=== PATIENT | female | born 1950 | race Caucasian/White ===

== ENCOUNTER 2016-08-27 10:38 | Outpatient (CLI) | payer MEDICARE, MEDICAID | END 2016-08-27 10:39 | disposition home or self-care (01) | DX: M81.0 Age-related osteoporosis without current pathological fracture (principal) ==

== ENCOUNTER 2016-09-13 14:30 | Outpatient (CLI) | payer MEDICARE, MEDICAID | END 2016-09-13 14:31 | disposition home or self-care (01) | DX: E87.1 Hypo-osmolality and hyponatremia (principal); D64.9 Anemia, unspecified ==

== ENCOUNTER 2016-11-14 13:36 | Outpatient (CLI) | payer MEDICARE, MEDICAID ==
[2016-11-14 19:16] LABS: ALBUMIN/GLOBULIN RATIO 1.2 (1.0-2.2); BILIRUBIN,TOTAL 0.7 mg/dL (0.2-1.0); CALCIUM 9.4 mg/dL (8.5-10.3); POTASSIUM 3.8 mmol/L (3.5-5.0); TOTAL PROTEIN 7.6 g/dL (6.7-8.2)
[2016-11-14 19:23] LABS: BASOPHILS # (AUTO) 0.1 10^3/uL (0.0-0.1); BASOPHILS % (AUTO) 1.9 %; EOSINOPHILS # (AUTO) 0.3 10^3/uL (0.0-0.7); EOSINOPHILS % (AUTO) 4.8 %; HCT - HEMATOCRIT 36.5 % (37.0-47.0); HGB - HEMOGLOBIN 11.7 g/dL (12.0-16.0); LYMPHOCYTES # (AUTO) 1.3 10^3/uL (1.5-3.5); MEAN CORPUSCULAR HEMOGLOBIN 29.1 pg (27.0-31.0); MEAN PLATELET VOLUME 8.4 fL (7.9-10.8); MONOCYTES # (AUTO) 0.6 10^3/uL (0.0-1.0); MONOCYTES % (AUTO) 9.8 %; NEUTROPHILS # (AUTO) 4.3 10^3/uL (1.5-6.6); NEUTROPHILS % (AUTO) 64.5 %; RED BLOOD COUNT 4.01 10^6/uL (4.20-5.40); RED CELL DISTRIBUTION WIDTH 27.6 % (12.0-15.0); UNCORRECTED WHITE BLOOD COUNT 6.6 x10^3/uL; WHITE BLOOD COUNT 6.6 x10^3/uL (4.8-10.8)
[2016-11-14 21:04] LABS: PLATELET ESTIMATE, MANUAL NORMAL (130-450,000) (NORMAL); PLATELET MORPHOLOGY 1+ LARGE PLATELETS (NORMAL)
[2016-11-14 21:05] LABS: WBC MORPHOLOGY (MULTIPLE) 1+ SMUDGE CELLS (NORMAL)
== END 2016-11-14 13:37 ==
LOC: LAB.N 13:36
PROVIDERS: ATTEND Family Medicine
DX: D50.9 Iron deficiency anemia, unspecified (principal)
CPT/HCPCS: 36415; 80053; 82728; 85025

== ENCOUNTER 2017-02-18 12:38 | Outpatient (CLI) | payer MEDICARE, MEDICAID ==
--- NOTE | 2017-02-18 13:23 | Ultrasound Report ---
ULTRASOUND RIGHT ANTERIOR NECK: 02/18/2017 CLINICAL INDICATION: Palpable abnormality. TECHNIQUE: Real-time scanning was performed with marketing representative static images obtained. FINDINGS: Ultrasound of the right anterior neck was performed, directed to the palpable abnormality identified by the patient. At the site of the palpable abnormality, there is a 2.9 x 1.7 x 1.5 cm hypoechoic, heterogeneous nodule, with internal vascularity. A similar appearance is seen within the right jugular vein adjacent to this lesion. It is uncertain if this represents a vascular lesion which extends into collateral vessels, or a soft tissue mass involving the jugular vein. This appears separate from the thyroid gland. No cervical adenopathy is identified in the region. IMPRESSION: UNUSUAL SOFT TISSUE MASS CORRELATING WITH THE PALPABLE ABNORMALITY , WITH POSSIBLE ADJACENT INVOLVEMENT OF THE RIGHT JUGULAR VEIN. FURTHER EVALUATION WITH NECK CT WITH AND WITHOUT IV CONTRAST IS RECOMMENDED. JOB #: [id number] EXT JOB #: [id number] MTDCharisse
== END 2017-02-18 12:39 | disposition home or self-care (01) ==
LOC: DI 12:38
PROVIDERS: ATTEND Family Medicine
DX: R22.1 Localized swelling, mass and lump, neck (principal)
CPT/HCPCS: 76536

== ENCOUNTER 2017-03-27 13:40 | Outpatient (CLI) | payer MEDICARE, MEDICAID ==
[2017-03-27 19:10] LABS: CALCIUM 9.4 mg/dL (8.5-10.3); POTASSIUM 3.6 mmol/L (3.5-5.0)
== END 2017-03-27 13:41 | disposition home or self-care (01) ==
LOC: LAB.N 13:40
PROVIDERS: ATTEND Family Medicine
DX: R22.1 Localized swelling, mass and lump, neck (principal)
CPT/HCPCS: 36415; 80048

== ENCOUNTER 2017-03-29 11:41 | Outpatient (CLI) | payer MEDICARE, MEDICAID ==
[~2017-03-29 11:41] MED LIST: IOPAMIDOL-300 100 ML VIAL ONE
[2017-03-29] MEDS ORDERED: IOPAMIDOL-300 100 ML VIAL IVP ONE ×2 (13:20)
--- NOTE | 2017-03-30 19:02 | CT Report ---
EXAM: CT SOFT TISSUE NECK EXAM DATE: 03/29/2017 01:04 p.m. HISTORY: Swelling in the neck, indeterminate findings on ultrasound. COMPARISONS: Ultrasound 02/18/2017. TECHNIQUE: Helical CT of the soft tissue neck were obtained from the frontal sinus through the paul before and after the uneventful administration of contrast. IV contrast: Without and with contrast, 100 mL Isovue-300. Reconstructions: Coronal and sagittal. In accordance with CT protocol optimization, one or more of the following dose reduction techniques w ere utilized for this exam: automated exposure control, adjustment of mA and/or KV based on patient s ize, or use of iterative reconstructive technique. FINDINGS: There is a peripherally-enhancing lobulated soft tissue mass lesion deep to the right sternocleidomas toid muscle, measuring 2.1 x 3.1 x 4.3 cm, appearing to invade into the right jugular vein with throm bus within the right jugular vein. Thrombus within the right internal jugular vein extends to the C1- C2 level, without extension into the right jugular bulb. There is no extension caudally into the brac hiocephalic vein. Mass almost certainly represents metastatic cervical adenopathy. The nasopharyngeal mucosa, oropharyngeal mucosa, and hypopharyngeal mucosa appear unremarkable. Garcia cula and pyriform sinus appear unremarkable. Larynx and hypopharynx appear unremarkable. Mobile tongu e, sublingual space, and tongue base appear unremarkable. Submandibular and sublingual glands appear unremarkable. Bilateral parotid glands appear unremarkable. Thyroid gland appears unremarkable. Mediastinum, precarinal region, subcarinal region and bilateral hilum appear unremarkable. Axilla and supraclavicular fossa appear unremarkable. Visualized lungs appear unremarkable. Visualized intracranial content shows atherosclerotic calcifica tions of bilateral cavernous carotid arteries. Atherosclerotic calcification of the vertebral artery. Orbits, infratemporal fossa, parapharyngeal space and retropharyngeal space appear unremarkable. No a bnormal enhancement in the visualized intracranial compartment. Multilevel degenerative changes of the cervical spine with anterolisthesis at C3-C4 and C4-C5. Disk h eight loss most pronounced at C5-C6. Levoconvex scoliosis at the cervicothoracic junction. IMPRESSION: 1. Multilobulated peripherally-enhancing, centrally hypoenhancing mass lesion in the right neck, leve l II kevyn station, most likely metastatic adenopathy measuring 2.1 x 3.1 x 4.3 cm. Mass lesion likel y extending into and invading the right internal jugular vein, without invading the carotid artery. T here is thrombus within the right internal jugular vein which extends from the level of the thyroid g land to the C1-C2 level. There is no extension of thrombus into the jugular bulb. 2. No mucosal mass lesions demonstrated. No other areas of cervical adenopathy. RADIA The above critical findings were discussed with Elisa MCWILLIAMS by Dr. Juan Antonio Lynch at 18:48 hr s on 03/30/17. Referring Provider Line: [phone] SITE ID: [id number]
== END 2017-03-29 11:42 | disposition home or self-care (01) ==
LOC: DI 11:41
PROVIDERS: ATTEND Family Medicine
DX: R22.1 Localized swelling, mass and lump, neck (principal); I82.C11 Acute embolism and thrombosis of right internal jugular vein
CPT/HCPCS: 70492; Q9967

== ENCOUNTER 2018-01-27 08:01 | Outpatient (CLI) | payer MEDICARE, MEDICAID ==
--- NOTE | 2018-01-27 09:16 | Ultrasound Report ---
Procedure Date: 01/27/2018 Accession Number: [id number] / [id number] Procedure: US - Abdomen Limited CPT Code: FULL RESULT: EXAM: ABDOMEN ULTRASOUND LIMITED EXAM DATE: 01/27/2018 09:02 AM. CLINICAL HISTORY: SUBCUTANEOUS NODULE OF ABDOMINAL WALL. COMPARISON: None. TECHNIQUE: Real-time scanning was performed with static images obtained. FINDINGS: The palpated abnormality corresponds to a small noncompressible hernia measuring about 15 x 6 mm with a neck measuring about 5 mm. This appears to be through the mesh of a previous hernia repair. No bowel involvement. IMPRESSION: Small noncompressible hernia with no bowel involvement. RADIA
== END 2018-01-27 08:02 | disposition home or self-care (01) ==
LOC: DI 08:01
PROVIDERS: ATTEND Family Medicine
DX: K43.9 Ventral hernia without obstruction or gangrene (principal)
CPT/HCPCS: 76705

== ENCOUNTER 2018-03-19 14:45 | Outpatient (CLI) | payer MEDICARE, MEDICAID ==
--- NOTE | 2018-03-19 16:14 | XRAY Report ---
Reason: toe pain, right Procedure Date: 03/19/2018 Accession Number: [id number] / [id number] Procedure: XRN - Toe(s) RT CPT Code: FULL RESULT: EXAM: RIGHT TOE RADIOGRAPHY EXAM DATE: 03/19/2018 03:06 PM. CLINICAL HISTORY: Toe pain, right. COMPARISON: None. TECHNIQUE: 3 views. FINDINGS: Bones: Bones are qualitatively osteopenic. No fracture or bone lesion. Joints: Midfoot degenerative changes are difficult to evaluate given osteopenia but appear neuropathic. Soft Tissues: Normal. No soft tissue swelling. IMPRESSION: Osteopenia and questionable neuropathic midfoot changes. RADIA
== END 2018-03-19 14:46 | disposition home or self-care (01) ==
LOC: DI.N 14:45
PROVIDERS: ATTEND Family Medicine
DX: M85.871 Other specified disorders of bone density and structure, right ankle and foot (principal)
CPT/HCPCS: 73660

== ENCOUNTER 2018-05-22 14:27 | Outpatient (CLI) | payer MEDICARE, MEDICAID ==
[2018-05-22 19:07] LABS: BASOPHILS # (AUTO) 0.1 10^3/uL (0.0-0.1); BASOPHILS % (AUTO) 3.2 %; EOSINOPHILS # (AUTO) 0.2 10^3/uL (0.0-0.7); HGB - HEMOGLOBIN 7.7 g/dL (12.0-16.0); LYMPHOCYTES # (AUTO) 0.7 10^3/uL (1.5-3.5); LYMPHOCYTES % (AUTO) 17.8 %; MEAN CORPUSCULAR HGB CONC 30.5 g/dL (32.0-36.0); MEAN CORPUSCULAR VOLUME 88.4 fL (81.0-99.0); MEAN PLATELET VOLUME 8.2 fL (7.9-10.8); MEAN RETIC VALUE 133.9; MONOCYTES # (AUTO) 0.5 10^3/uL (0.0-1.0); MONOCYTES % (AUTO) 12.6 %; NEUTROPHILS # (AUTO) 2.3 10^3/uL (1.5-6.6); NEUTROPHILS % (AUTO) 61.4 %; PLT - PLATELET COUNT 212 10^3/uL (130-450); RED BLOOD COUNT 2.85 10^6/uL (4.20-5.40); WHITE BLOOD COUNT 3.7 x10^3/uL (4.8-10.8)
[2018-05-22 19:27] LABS: ALBUMIN 3.8 g/dL (3.2-5.5); ALBUMIN/GLOBULIN RATIO 1.2 (1.0-2.2); BILIRUBIN,TOTAL 0.5 mg/dL (0.2-1.0); CALCIUM 8.9 mg/dL (8.5-10.3); CREATININE 0.6 mg/dL (0.4-1.0); TOTAL PROTEIN 6.9 g/dL (6.7-8.2)
== END 2018-05-22 23:59 ==
LOC: LAB.N 14:27
PROVIDERS: ATTEND Family Medicine
DX: D50.9 Iron deficiency anemia, unspecified (principal); E87.1 Hypo-osmolality and hyponatremia
CPT/HCPCS: 36415; 80053; 82728; 83540; 84466; 85025; 85044

== ENCOUNTER 2018-08-11 08:00 | Outpatient (CLI) | payer MEDICARE, MEDICAID ==
[2018-08-11 19:25] LABS: FERRITIN 168.6 ng/mL (11.0-306.8)
[2018-08-11 19:28] LABS: FOLATE 21.26 ng/mL (5.90 - >24.8)
[2018-08-11 20:05] LABS: % IRON SATURATION 23 % (20-50); IRON 79 ug/dL (28-170); TOTAL IRON BINDING CAPACITY 342 ug/dL (250-450); TRANSFERRIN 244 mg/dL (192-382)
[2018-08-11 20:08] LABS: BASOPHILS # (AUTO) 0.1 10^3/uL (0.0-0.1); BASOPHILS % (AUTO) 1.2 %; EOSINOPHILS # (AUTO) 0.2 10^3/uL (0.0-0.7); EOSINOPHILS % (AUTO) 5.2 %; HGB - HEMOGLOBIN 12.3 g/dL (12.0-16.0); LYMPHOCYTES # (AUTO) 0.8 10^3/uL (1.5-3.5); LYMPHOCYTES % (AUTO) 17.5 %; MEAN CORPUSCULAR HEMOGLOBIN 34.2 pg (27.0-31.0); MEAN CORPUSCULAR HGB CONC 33.1 g/dL (32.0-36.0); MEAN CORPUSCULAR VOLUME 103.4 fL (81.0-99.0); MEAN PLATELET VOLUME 8.3 fL (7.9-10.8); MONOCYTES # (AUTO) 0.5 10^3/uL (0.0-1.0); MONOCYTES % (AUTO) 11.3 %; NEUTROPHILS # (AUTO) 2.8 10^3/uL (1.5-6.6); NEUTROPHILS % (AUTO) 64.8 %; PLT - PLATELET COUNT 180 10^3/uL (130-450); RED BLOOD COUNT 3.59 10^6/uL (4.20-5.40); RED CELL DISTRIBUTION WIDTH 21.3 % (12.0-15.0); WHITE BLOOD COUNT 4.3 x10^3/uL (4.8-10.8)
[2018-08-11 22:28] LABS: PLATELET MORPHOLOGY NORMAL APPEARANCE (NORMAL)
[2018-08-11 22:29] LABS: PLATELET ESTIMATE, MANUAL NORMAL (130-450,000) (NORMAL)
== END 2018-08-11 23:59 | disposition home or self-care (01) ==
LOC: LAB.N 08:00
PROVIDERS: ATTEND Nurse Practitioner
DX: D50.9 Iron deficiency anemia, unspecified (principal)
CPT/HCPCS: 36415; 82607; 82728; 82746; 83540; 84466; 85025

== ENCOUNTER 2019-08-14 14:27 | Outpatient (CLI) | payer MEDICARE, MEDICAID ==
--- NOTE | 2019-08-15 00:01 | XRAY Report ---
Reason: FRACTURE Procedure Date: 08/14/2019 Accession Number: [id number] / [id number] Procedure: XRN - Humerus RT CPT Code: Final Report FULL RESULT: EXAM: RIGHT HUMERUS RADIOGRAPHY EXAM DATE: 08/14/2019 03:28 PM. CLINICAL HISTORY: Fracture. COMPARISON: None. TECHNIQUE: 2 views. FINDINGS: Bones: Displaced transverse humeral neck fracture. No other bony abnormalities identified. Joints: Normal. No effusions or subluxations in the visualized shoulder or elbow joints. Soft Tissues: Normal. No soft tissue calcification. IMPRESSION: Displaced transverse humeral neck fracture. RADIA
== END 2019-08-14 14:28 | disposition home or self-care (01) ==
LOC: DI.N 14:27
PROVIDERS: ATTEND Nurse Practitioner Gerontology
DX: S42.291A Other displaced fracture of upper end of right humerus, initial encounter for closed fracture (principal)

== ENCOUNTER 2021-07-25 14:28 | Outpatient (CLI) | payer MEDICARE, MEDICAID ==
[2021-07-25 18:01] LABS: BASOPHILS # (AUTO) 0.1 10^3/uL (0.0-0.1); BASOPHILS % (AUTO) 2.2 %; EOSINOPHILS # (AUTO) 0.1 10^3/uL (0.0-0.7); EOSINOPHILS % (AUTO) 1.5 %; HCT - HEMATOCRIT 26.8 % (37.0-47.0); LYMPHOCYTES # (AUTO) 0.8 10^3/uL (1.5-3.5); LYMPHOCYTES % (AUTO) 18.5 %; MEAN CORPUSCULAR HEMOGLOBIN 26.2 pg (27.0-31.0); MEAN CORPUSCULAR HGB CONC 29.9 g/dL (32.0-36.0); MEAN CORPUSCULAR VOLUME 87.9 fL (81.0-99.0); MEAN PLATELET VOLUME 10.1 fL (7.9-10.8); MONOCYTES # (AUTO) 0.5 10^3/uL (0.0-1.0); MONOCYTES % (AUTO) 12.4 %; NEUTROPHILS # (AUTO) 2.7 10^3/uL (1.5-6.6); NEUTROPHILS % (AUTO) 64.9 %; PLT - PLATELET COUNT 251 10^3/uL (130-450); RED BLOOD COUNT 3.05 10^6/uL (4.20-5.40); RED CELL DISTRIBUTION WIDTH 20.2 % (12.0-15.0); WHITE BLOOD COUNT 4.1 x10^3/uL (4.8-10.8)
[2021-07-25 19:08] LABS: ALBUMIN/GLOBULIN RATIO 1.2 (1.0-2.2); BILIRUBIN,TOTAL 0.5 mg/dL (0.2-1.0); CALCIUM 9.5 mg/dL (8.5-10.3); CREATININE 0.6 mg/dL (0.4-1.0); POTASSIUM 3.9 mmol/L (3.5-5.0); TOTAL PROTEIN 7.3 g/dL (6.7-8.2)
== END 2021-07-25 14:29 | disposition home or self-care (01) ==
LOC: LAB.N 14:28
PROVIDERS: ATTEND Nurse Practitioner Family
DX: K74.60 Unspecified cirrhosis of liver (principal); D50.9 Iron deficiency anemia, unspecified
CPT/HCPCS: 36415; 80053; 82728; 83540; 84466; 85025

== ENCOUNTER 2022-01-03 14:48 | Outpatient (CLI) | payer MEDICARE, MEDICAID ==
[2022-01-03 17:46] LABS: BASOPHILS # (AUTO) 0.1 10^3/uL (0.0-0.1); BASOPHILS % (AUTO) 2.5 %; EOSINOPHILS # (AUTO) 0.1 10^3/uL (0.0-0.7); EOSINOPHILS % (AUTO) 2.7 %; HCT - HEMATOCRIT 33.1 % (37.0-47.0); HGB - HEMOGLOBIN 10.9 g/dL (12.0-16.0); LYMPHOCYTES # (AUTO) 0.7 10^3/uL (1.5-3.5); LYMPHOCYTES % (AUTO) 15.3 %; MEAN CORPUSCULAR HGB CONC 32.9 g/dL (32.0-36.0); MEAN CORPUSCULAR VOLUME 109.2 fL (81.0-99.0); MONOCYTES # (AUTO) 0.7 10^3/uL (0.0-1.0); MONOCYTES % (AUTO) 15.3 %; NEUTROPHILS # (AUTO) 2.9 10^3/uL (1.5-6.6); PLT - PLATELET COUNT 236 10^3/uL (130-450); RED BLOOD COUNT 3.03 10^6/uL (4.20-5.40); RED CELL DISTRIBUTION WIDTH 13.8 % (12.0-15.0); WHITE BLOOD COUNT 4.5 x10^3/uL (4.8-10.8)
[2022-01-03 18:21] LABS: ALBUMIN 4.3 g/dL (3.2-5.5); ALBUMIN/GLOBULIN RATIO 1.6 (1.0-2.2); BILIRUBIN,TOTAL 0.8 mg/dL (0.2-1.0); CALCIUM 10.1 mg/dL (8.5-10.3); CREATININE 0.7 mg/dL (0.4-1.0)
[2022-01-03 18:35] LABS: THYROID STIMULATING HORMONE 3.45 uIU/mL (0.34-5.60)
== END 2022-01-03 14:49 | disposition home or self-care (01) ==
LOC: LAB.N 14:48
PROVIDERS: ATTEND Nurse Practitioner Family
DX: I10 Essential (primary) hypertension (principal); D50.9 Iron deficiency anemia, unspecified
CPT/HCPCS: 36415; 80053; 84443; 85025

== ENCOUNTER 2022-03-01 09:08 | Outpatient (CLI) | payer MEDICARE, MEDICAID ==
[~2022-03-01 09:08] MED LIST changes: -IOPAMIDOL-300 100 ML VIAL ONE; +LIDOCAINE 1%-EPI 1:100000 20 ML MDV ONE; +lidocaine 1% 20 ML MDV ONE
[2022-03-01] MEDS ORDERED: lidocaine 1% 20 ML MDV SUBQ ONE (12:46)
[2022-03-01] MEDS ORDERED: LIDOCAINE 1%-EPI 1:100000 20 ML MDV SUBQ ONE (12:53)
--- NOTE | 2022-03-02 09:03 | Mammography Report ---
UNILATERAL RIGHT DIGITAL DIAGNOSTIC MAMMOGRAM 3D/2D: 03/01/2022 CLINICAL: Post right breast ultrasound biopsy clip placement imaging. Comparison is made to exams dated: 03/01/2022 mammogram - [facility] and 01/15/2022 m ammogram - [facility]. The right breast is extremely dense, which lowers the sensitivity of mammography (category d />75% g landular tissue). There is a marker clip in the appropriate position in the right breast at 12 o'clock anterior depth. This marker clip placement is at the biopsy site. IMPRESSION: POST PROCEDURE MAMMOGRAM FOR MARKER PLACEMENT There was a successful marker clip placement in the right breast anterior depth. Based on the Tyrer Cuzick model (a risk assessment model) the patients lifetime risk is 7.9% and her 10 year risk is 5.0%. According to the ACR, ACS, and NCCN guidelines, an annual breast MRI exam fidel g with mammogram is recommended if the patients lifetime risk is 20% or greater. This exam was interpreted at Station ID: [id number]. NOTE: For mammograms, a report in lay terms will be sent to the patient. Approximately 15% of breast malignancies will not be visualized mammographically. In the management of a palpable breast mass, a negative mammogram must not discourage biopsy of a clinically suspicious lesion. Electronically Signed By: Sorin Jean-Baptiste acr/:03/01/2022 15:09:24 ACR BI-RADS Category Post-procedure mammogram for marker placement PARENCHYMAL PATTERN: (VD) - The breast(s) demonstrate(s) extremely dense parenchyma, limiting the sen sitivity of mammography. BI-RADS CATEGORY: () - Unspecified - other recall n/a LATERALITY: (B)
--- NOTE | 2022-03-02 09:03 | Mammography Report ---
UNILATERAL LEFT DIGITAL DIAGNOSTIC MAMMOGRAM 3D/2D: 03/01/2022 CLINICAL: Left breast stereotactic biopsy attempted but due to breast thiness/body habitus unable to do exam. Comparison is made to exam dated: 01/15/2022 mammogram - [facility]. The left breast is extremely dense, which lowers the sensitivity of mammography (category d />75% gl andular tissue). Previously described calcifications are unchanged. IMPRESSION: SUSPICIOUS OF MALIGNANCY Calcifications previously described in the left breast could not be targeted for stereotactic biopsy despite multiple positions attempted. Due to the inability to target the calcifications, recommend ne edle localization and excisional biopsy. Based on the Tyrer Cuzick model (a risk assessment model) the patients lifetime risk is 7.9% and her 10 year risk is 5.0%. According to the ACR, ACS, and NCCN guidelines, an annual breast MRI exam fidel g with mammogram is recommended if the patients lifetime risk is 20% or greater. This exam was interpreted at Station ID: [id number]. NOTE: For mammograms, a report in lay terms will be sent to the patient. Approximately 15% of breast malignancies will not be visualized mammographically. In the management of a palpable breast mass, a negative mammogram must not discourage biopsy of a clinically suspicious lesion. Electronically Signed By: Sorin Jean-Baptiste acr/:03/01/2022 15:18:42 Entry: - 03/02/2022 08:43:37 ACR BI-RADS Category 4a: Suspicious abnormality - low suspicion for malignancy 3344F PARENCHYMAL PATTERN: (VD) - The breast(s) demonstrate(s) extremely dense parenchyma, limiting the sen sitivity of mammography. BI-RADS CATEGORY: (4a) - Low Susp Biopsy [id number] Immediate follow-up LATERALITY: (L)
--- NOTE | 2022-03-06 08:19 | Ultrasound Report ---
ULTRASOUND GUIDED BIOPSY RIGHT BREAST WITH MARKING DEVICE INSERTED AND POST MAMMOGRAPHIC IMAGIN02/09 CLINICAL: Right breast mass. PATIENT CONSENT: Risks (minor bleeding, infection, vasovagal reaction and repeat procedure), benefits and alternatives were explained to the patient and written informed consent was obtained. Correlation is made to exams dated: 01/15/2022 ultrasound and 01/15/2022 mammogram - [facility]. An ultrasound guided biopsy using real-time ultrasound was performed for the 2.4 cm x 0.9 cm x 1.5 cm circumscribed oval solid mass located in the right breast at 12 o'clock anterior depth 3 cm from the nipple. The skin was prepped in the usual manner. Local anesthetic was administered to the access site. A small incision was made in the breast. The abnormality was approached from the lateral aspe ct. A 13 gauge biopsy needle was placed adjacent to the abnormality under ultrasound guidance. Once the needle was documented to be in the correct location, seven specimens were obtained using an auto mated biopsy gun. A Hydromark clip was inserted into the biopsy cavity. Post procedure mammographic imaging was obtained. The specimens were sent to the laboratory for pathological analysis. IMPRESSION: ULTRASOUND GUIDED BIOPSY MALIGNANT Ultrasound guided biopsy of the 2.4 cm x 0.9 cm x 1.5 cm solid mass in the right breast at 12 o'clock anterior depth 3 cm from the nipple was successful. Pathology indicates malignant invasive ductal c arcinoma (ID). Pathology results are concordant with imaging findings. A surgical/oncologic consult ation is recommended. This exam was interpreted at Station ID: [id number]. Sorin Mix M.D. acr,jr/:03/05/2022 15:42:30 BI-RADS CATEGORY: () - Unspecified - other recall n/a LATERALITY: (B)
== END 2022-03-01 09:09 | disposition home or self-care (01) ==
LOC: DI 09:08
PROVIDERS: ATTEND Nurse Practitioner Family
DX: C50.811 Malignant neoplasm of overlapping sites of right female breast (principal); Z17.0 Estrogen receptor positive status [ER+]; R92.1 Mammographic calcification found on diagnostic imaging of breast
CPT/HCPCS: 19083

== ENCOUNTER 2022-04-02 07:58 | Day surgery (SDC) | payer MEDICARE, MEDICAID ==
--- NOTE | 2022-03-28 12:20 | CONSULTATION NOTE ---
Consultation Report: Dora is a 71 year old woman with right breast cancer, here for right breast mastectomy. She has a history of oral cancer s/p neck dissection, radiation and chemo. She is a current everyday smoker, history of gastric ulcer and GERD. Her neck dissection took place after radiation and the anesthetic record indicated no difficulty securing the airway (Grade I view, easy mask ventilation and 6.5 ETT). Airway exam is reassuring, MP 1, TMD 3FB with limited neck range of motion. She is edentulous. Discussed the anesthetic management with the patient including possible need for possible awake intubation if unable to secure airway with her asleep. Patient is agreeable. Will proceed with surgery as planned at [facility].
[~2022-04-02 07:58] MED LIST changes: +ACETAMINOPHEN 500 MG TABLET PO ONE; +CEFAZOLIN 2G/50ML 0.9% NS 2 GM/50 ML BAG IV ONE; +GABAPENTIN 400 MG CAPSULE ONE; -LIDOCAINE 1%-EPI 1:100000 20 ML MDV ONE; -lidocaine 1% 20 ML MDV ONE
[2022-04-02] MEDS ORDERED: LACTATED RINGERS 1,000 ML IV ONE ×3 (08:35→16:12)
[2022-04-02] MEDS ORDERED: ALPRAZolam 0.25 MG TABLET PO ONE (08:45)
[2022-04-02] MEDS ORDERED: BUPIVACAINE 0.25% PF 10 ML VIAL ONE (12:15)
[2022-04-02] MEDS ORDERED: LIDOCAINE MPF 2%-EPI 1:200000 20 ML VIAL ONE (12:15)
[2022-04-02] MEDS ORDERED: fentaNYL 100 MCG/2 ML VIAL ONE (12:41)
[2022-04-02] MEDS ORDERED: PROPOFOL 200 MG/20 ML VIAL IVP ONE (12:41)
[2022-04-02] MEDS ORDERED: MIDAZOLAM 2 MG/2 ML VIAL ONE (12:41)
[2022-04-02] MEDS ORDERED: ROCURONIUM 50 MG/5 ML VIAL ONE (12:45)
--- NOTE | 2022-04-02 13:02 | ANESTHESIA ---
Pre-Anesthesia VS, & Labs - Diagnosis R IDC, L breast calcifications - Procedure simplse mastectomy, sentinel lymph node dissection Vital Signs: Temp Pulse Resp BP Pulse Ox O2 Flow Rate 36.8 C 61 17 153/70 H 100 04/02/22 08:37 04/02/22 08:37 04/02/22 08:37 04/02/22 08:37 04/02/22 08:37 Height: 5 ft Weight (kg): 40 kg Body Mass Index: 17.2 BMI Classification: Underweight - NPO >8 hours - Is Patient ?: No - Lab Results Lab results reviewed: Yes Home Medications and Allergies Home Medications: Ambulatory Orders Metoprolol Succinate [Toprol Xl] 25 mg PO ONCE 03/28/22 Omeprazole [PriLOSEC] 20 mg PO DAILY 09/05/15 Metoprolol Succinate [Toprol Xl] 25 mg PO ONCE 03/28/22 Allergies/Adverse Reactions: Allergies Allergy/AdvReac Type Severity Reaction Status Date / Time NSAIDS (Non-Steroidal Allergy Unknown Unknown Verified 03/30/22 12:33 Anti-Inflamma Penicillins Allergy Rash Verified 03/30/22 12:33 Anes History & Medical History - Anesthetic History Anesthesia Complications: reports: No previous complications Family history of Anesthesia Complications: Denies Family history of Malignant Hyperthermia: Denies - Medical History Cardiovascular: reports: Hypertension Pulmonary: reports: Other Gastrointestinal: reports: GERD, Ulcers, Colon polyps, Hepatitis, Cirrhosis Urinary: reports: Kidney stones, Other Neuro: reports: None Musculoskeletal: reports: Osteoporosis Blood Disorders: reports: Anemia Skin: reports: Other Smoking Status: Current every day smoker - Surgical History General: reports: Gastric surgery, Hiatal hernia repair, Colonoscopy, EGD Gynecologic: reports: Tubal ligation Exam General: Alert, Oriented x3, Cooperative Dental: Dentures full Upper Mouth Openin Fingerbreadth Neck Mobility: Limited Mallampati classification: II Thyromental Distance: 4-6 cm Respiratory: Lungs clear, Decreased breath sounds Cardiovascular: Regular rate Neurological: Normal speech Mental/Cognitive Status: Alert/Oriented X3, Normal for patient Cognitive Status: Within normal limits Plan Anesthesia Type: General Consent for Procedure(s) Verified and Reviewed: Yes Code Status: Attempt Resuscitation ASA classification: 3-Severe systemic disease Is this case an emergency?: No
[2022-04-02] MEDS ORDERED: PHENYLEPHRINE 10 MG/ML VIAL ONE (13:16)
[2022-04-02] MEDS ORDERED: ONDANSETRON 4 MG/2 ML VIAL ONE (13:46)
[2022-04-02] MEDS ORDERED: BUPIVACAINE 0.25% PF 10 ML VIAL SUBQ ONE ×2 (13:47)
[2022-04-02] MEDS ORDERED: LIDOCAINE 1%-EPI 1:100000 30 ML MDV SUBQ ONE ×2 (13:47)
--- NOTE | 2022-04-02 14:15 | Mammography Report ---
PROCEDURE: Breast Specimen Surgical INDICATIONS: LEFT BREAST SPECIMEN TECHNIQUE: Intraoperative film of the breast surgical specimen acquired. COMPARISON: Needle localization from earlier today FINDINGS: Tip of the localizing wire is present. Also visualized within the specimen is the nearby calcifications being targeted. IMPRESSION: Left breast specimen demonstrates the tip of the needle localization wire as well as mul tiple targeted calcifications. Reviewed by: Sorin Jean-Baptiste on 04/02/2022 2:13 PM PDT Approved by: Sorin Jean-Baptiste on 04/02/2022 2:13 PM PDT Station ID: [id number]
[2022-04-02] MEDS ORDERED: SEVOFLURANE 250 ML LIQUID INH ONE (14:50)
[2022-04-02] MEDS ORDERED: NALOXONE 0.4 MG/ML VIAL IVP PRN (15:26)
[2022-04-02] MEDS ORDERED: fentaNYL 100 MCG/2 ML VIAL IVP PRN (15:26)
[2022-04-02] MEDS ORDERED: ONDANSETRON 4 MG/2 ML VIAL IVP PRN ×2 (15:26→16:32)
[2022-04-02] MEDS ORDERED: MORPHINE 2 MG/ML CARPUJECT IVP PRN (15:26)
[2022-04-02] MEDS ORDERED: ATROPINE ABBOJECT 1 MG/10 ML SYRINGE IVP PRN (15:26)
[2022-04-02] MEDS ORDERED: HYDROmorphone 0.5 MG/0.5 ML SYRINGE IVP PRN (15:26)
[2022-04-02] MEDS ORDERED: LACTATED RINGERS 1,000 ML IV SCH (16:00)
--- NOTE | 2022-04-02 16:20 | OPERATIVE REPORT ---
Operative Report - General Procedure Date: 04/02/22 Planned Procedure: Right mastectomy, right axillary sentinel lymph node biopsy, left breast excisional biopsy Pre-Op Diagnosis: Right breast invasive ductal carcinoma, left breast calcifications Procedure Performed: Right mastectomy, right axillary sentinel lymph node biopsy, left breast excisional biopsy Post Op Diagnosis: Right breast invasive ductal carcinoma, left breast calcifications - Procedure Note Primary Surgeon: Dr. Samia Holly Anesthesia Technique: General ET tube, Local Pathology: 1.Left breast excisional biopsy, short superior, long lateral, double deep, wire anterior 2. Right mastectomy, short superior, long lateral, skin superficial 3. Right axilla sentinel lymph node #1, #2, 1412 4. Right axilla sentinel lymph node #3, 120 5. Right axilla sentinel lymph node #4, 223 Estimated Blood Loss (mL): 50 Drain/Tube Type: Jhony Regalado drain (Right mastectomy) Indications: The patient have not a palpable mass on the right side and underwent bilateral mammography. She was found to have significant findings in both breasts. The left breast calcifications were unable to be biopsied. The right breast mass was biopsied and proven to be invasive ductal carcinoma. She was seen and evaluated in the clinic where we discussed the risks, benefits, and alternatives of right mastectomy with sentinel lymph node biopsy given the large tumor to breast ratio and left excisional biopsy. Risks of the procedure include bleeding, infection, damage to surrounding structures, and the need for additional procedures. The patient voiced understanding, her questions were answered, and she wished to proceed with surgery. A consent was signed in clinic. Findings: 1.Left breast excisional biopsy with wire in place, radiology confirms calcifications within specimen 2 right mastectomy 3 right axilla sentinel lymph node x4 Complications: None - Other Other Information/Narrative: The patient was taken to the operating room and placed in the supine position. Preop antibiotics were given. ERAS medications were given. The patient was prepped and draped in the usual sterile fashion. A preop surgical timeout was performed. First, attention was turned to the patient's left breast. An incision was made following the natural Bob's lines which incorporated the wire. Skin flaps w ere raised superiorly and inferiorly to the incision. At this point, serrated scissors were used to perform an excisional biopsy staying approximately 1 cm away from the wire in all dimensions. The biopsy specimen was removed and oriented with suture (short superior, long lateral, double deep) on the back table. The specimen was sent to mammography and calcifications were confirmed to be within the specimen. The specimen was then sent to pathology. The edges of the lumpectomy cavity were inspected and there were no palpable abnormalities. Hemostasis was confirmed. 3-0 Vicryl was used to approximate the deep dermal tissues, and 4-0 Monocryl was used to reapproximate the skin edges of this incision. Then, attention was turned to the patient's right breast. An curvilinear incision was made which the palpable mass and the nipple areolar complex. Skin flaps were raised superiorly to the level of the clavicle and inferiorly to the inframammary crease, medially to the border of the sternum, and laterally to the anterior border of the latissimus. The breast was removed from chest wall sitting superficial to the pectoral fascia. The mastectomy specimen was removed and oriented with suture (short superior, long lateral, skin superficial) on the back table. The specimen was sent to pathology . The edges of the mastectomy cavity were inspected hemostasis was confirmed. Next, attention was turned to the right axilla by way of the mastectomy incision. The neoprobe device was used to identify 4 sentinel nodes. Clips were used proximally and distally to the nodes and the nodes were removed the first node had a maximal reading of 1412 on the back table. The second sentinel lymph node measured 120 on the back table. The fourth sentinel lymph node measured 223 on the back table. On further inspection, there were no additional lymph nodes that had at least 10% uptake, 141, and no abnormal palpable nodes. Hemostasis was confirmed in the axilla. A 7 [place] BIRD drain was placed in right sided mastectomy/sentinel lymph node cavity due to its size. This was sewn into place using a 3-0 nylon suture. The deep dermal tissues of the mastectomy incision were closed with 2-0 Vicryl in an interrupted fashion. The skin was closed with 4-0 Monocryl in a running subcuticular fashion. A sterile dressing of skin glue was placed over both incisions. Sterile dressings were placed. The patient tolerated the procedure well. There were no complications.
--- NOTE | 2022-04-02 16:30 | ANESTHESIA POST OP EVALUATION ---
Anesthesia Post Eval - Post Anesthesia Eval Vitals: Last Vital Signs Temp 37.3 C 04/02/22 16:12 Pulse 58 L 04/02/22 16:26 Resp 12 04/02/22 16:26 BP 146/66 H 04/02/22 16:26 Pulse Ox 100 04/02/22 16:26 O2 Flow Rate CV Function Including HR & BP: Stable Pain Control: Satisfactory Nausea & Vomiting: Negative Mental Status: Baseline Respiratory Status: Airway Patent Hydration Status: Satisfactory Anesthesia Complications: None
[2022-04-02] MEDS ORDERED: ACETAMINOPHEN 325 MG TABLET PO PRN (16:32)
[2022-04-02] MEDS ORDERED: oxyCODONE 5 MG TABLET PO PRN (16:32)
[2022-04-02] MEDS ORDERED: HYDROmorphone 1 MG/ML CARPUJECT ONE (16:35)
[2022-04-02 18:02] VITALS: BP 142/66
== END 2022-04-02 18:45 | disposition home or self-care (01) ==
LOC: SDS 07:58 → MS2 17:13 → SDS 18:45
PROVIDERS: ATTEND Surgery
PROC: 0HBT0ZZ Excision of Right Breast, Open Approach (ICD-10-PCS; principal; 2022-04-02 12:00)
PROC: 07B50ZX Excision of Right Axillary Lymphatic, Open Approach, Diagnostic (ICD-10-PCS; 2022-04-02 12:00)
DX: C50.911 Malignant neoplasm of unspecified site of right female breast (principal); C77.3 Secondary and unspecified malignant neoplasm of axilla and upper limb lymph nodes; Z17.0 Estrogen receptor positive status [ER+]; I10 Essential (primary) hypertension; F17.210 Nicotine dependence, cigarettes, uncomplicated
CPT/HCPCS: 19303; 38525; 76098; A9270; J0690; J1170; J3490; J7120

== ENCOUNTER 2022-04-30 13:18 | Emergency (ER) | payer MEDICARE, MEDICAID ==
[2022-04-30 13:34] VITALS: BP 170/60
--- OUTSIDE RECORDS SUMMARY | 2022-04-30 13:37 | EXTERNAL MEDICAL SUMMARY RPT | Continuity of Care Document ---
:1950 Author Organization [facility] Address [address] [place], [place] [id number] Phone Allergies No information. Encounters No information. Functional Status No information. Immunizations No information. Medications No information. Problems No information. Procedures No information. Results/Labs test date author facility value unit interpret ation Result panel 1 (unknown) (no (unknown) (unknown) (no value) (units (unk nown) date) unknown) (unknown) (no (unknown) (unknown) (MIP's) (units (unkno wn) date) unknown) (unknown) (no (unknown) (unknown) 10 o'clock (units (unk nown) date) unknown) (unknown) (no (unknown) (unknown) 03/15/22 (units (unkno wn) date) unknown) (unknown) (no (unknown) (unknown) [address] [place] [address] (units (unknown) date) unknown) (unknown) (no (unknown) (unknown) : [id number] (units (u nknown) date) unknown) (unknown) (no (unknown) (unknown) Accession Number: (units (unknown) date) [id number] unknown) (unknown) (no (unknown) (unknown) Age/Sex: 71 / F (units (unknown) date) Date of Service: unknown) (unknown) (no (unknown) (unknown) [place], [place] (units ( unknown) date) [id number] unknown) (unknown) (no (unknown) (unknown) Approved by: (units (u nknown) date) Júnior Barron M.D. on unknown) 03/15/2022 at 16:39 (unknown) (no (unknown) (unknown) At the 10 o'clock (units (unknown) date) position of the unknown) right breast about 2 centimeters from the (unknown) (no (unknown) (unknown) At the 7 o'clock (units (unknown) date) position of the unknown) right breast about 5 centimeters from nipple, (unknown) (no (unknown) (unknown) BIRADS 6 (units (unkno wn) date) unknown) (unknown) (no (unknown) (unknown) COMMENT: The (units (u nknown) date) imaging literature unknown) indicates that a negative contrast breast MRI (unknown) (no (unknown) (unknown) COMPARISON: None. (units (unknown) date) unknown) (unknown) (no (unknown) (unknown) Computer-aided (units (unknown) date) detection, unknown) including computer algorithm analysis of MRI image (unknown) (no (unknown) (unknown) DCIS (ductal (units (u nknown) date) unknown) (unknown) (no (unknown) (unknown) : 1950 (units (unknown) date) Acct:[id number] unknown) (unknown) (no (unknown) (unknown) Dictated by: (units (u nknown) date) Júnior Barron M.D. on unknown) 03/15/2022 at 16:24 (unknown) (no (unknown) (unknown) Evaluation is (units ( unknown) date) degraded by motion unknown) artifact, suboptimal [id number] and lack of (unknown) (no (unknown) (unknown) Evaluation is (units ( unknown) date) limited as above. unknown) (unknown) (no (unknown) (unknown) FINDINGS: (units (unkn own) date) unknown) (unknown) (no (unknown) (unknown) False (units (unkno wn) date) unknown) (unknown) (no (unknown) (unknown) IMPRESSION: (units (un known) date) Suspected multi unknown) centric disease in the right breast. If (unknown) (no (unknown) (unknown) INDICATIONS: (units (u nknown) date) Malignant neoplasm unknown) of unspecified site (unknown) (no (unknown) (unknown) Image quality: (units (unknown) date) Degraded by motion unknown) artifact and suboptimal [id number]. In (unknown) (no (unknown) (unknown) Invasive (units (unkno wn) date) unknown) (unknown) (no (unknown) (unknown) [facility] (units (unknown) date) unknown) (unknown) (no (unknown) (unknown) Left breast: (units (u nknown) date) Limited evaluation unknown) due to lack of sagittal images and motion (unknown) (no (unknown) (unknown) Loc: MRI (units (unkno wn) date) unknown) (unknown) (no (unknown) (unknown) Magnetic (units (unkno wn) date) Resonance Report unknown) (unknown) (no (unknown) (unknown) Miscellaneous: (units (unknown) date) Partially unknown) visualized non breast findings without significant (unknown) (no (unknown) (unknown) No suspicious (units ( unknown) date) findings in the unknown) left breast. No correlate seen to calcifications (unknown) (no (unknown) (unknown) No suspicious (units ( unknown) date) internal mammary unknown) or axillary adenopathy is seen. (unknown) (no (unknown) (unknown) Ordering (units (unkno wn) date) Provider: unknown) Gricelda Jacques (unknown) (no (unknown) (unknown) PROCEDURE: MR (units ( unknown) date) BREAST BI WO/W CON unknown) (unknown) (no (unknown) (unknown) Patient: (units (unkno wn) date) Parker,Ally unknown) a MR# (unknown) (no (unknown) (unknown) Procedure: MR (units ( unknown) date) breast BI wo/w con unknown) (unknown) (no (unknown) (unknown) Right breast: (units ( unknown) date) There is an unknown) irregular mass with heterogeneous enhancement and (unknown) (no (unknown) (unknown) Signed (units (unkno wn) date) unknown) (unknown) (no (unknown) (unknown) TECHNIQUE: (units (unk nown) date) unknown) (unknown) (no (unknown) (unknown) The patient did (units (unknown) date) not tolerate unknown) further imaging. No suspicious mass, focus, or (unknown) (no (unknown) (unknown) The patient was (units (unknown) date) placed prone in a unknown) dedicated breast imaging coil. Precontrast (unknown) (no (unknown) (unknown) There is mild (units ( unknown) date) background unknown) parenchymal enhancement. (unknown) (no (unknown) (unknown) addition, (units (unkn own) date) unknown) (unknown) (no (unknown) (unknown) after bolus (units (un known) date) unknown) (unknown) (no (unknown) (unknown) an irregular mass (units (unknown) date) with heterogeneous unknown) enhancement and irregular margins (unknown) (no (unknown) (unknown) and 3D FLASH (units (u nknown) date) without fat unknown) saturation sequences were obtained. Both before and (unknown) (no (unknown) (unknown) axial STIR (units (unk nown) date) unknown) (unknown) (no (unknown) (unknown) breast sagittal (units (unknown) date) images. unknown) (unknown) (no (unknown) (unknown) breast were (units (un known) date) unknown) (unknown) (no (unknown) (unknown) calcifications on (units (unknown) date) unknown) (unknown) (no (unknown) (unknown) carcinoma in (units (u nknown) date) situ) and may not unknown) detect large invasive neoplasms that show only (unknown) (no (unknown) (unknown) carcinomas to a (units (unknown) date) detection unknown) threshold of 3-5 mm; nonetheless, appropriate (unknown) (no (unknown) (unknown) clinical and (units (u nknown) date) unknown) (unknown) (no (unknown) (unknown) clinically (units (unk nown) date) worrisome palpable unknown) masses, then biopsy should still be considered. (unknown) (no (unknown) (unknown) confirmation is (units (unknown) date) unknown) (unknown) (no (unknown) (unknown) data for (units (unkno wn) date) unknown) (unknown) (no (unknown) (unknown) degradation. (units (u nknown) date) unknown) (unknown) (no (unknown) (unknown) ductal (units (unkno wn) date) unknown) (unknown) (no (unknown) (unknown) enhancement is (units (unknown) date) identified unknown) corresponding to previously noted group (unknown) (no (unknown) (unknown) enhancement such (units (unknown) date) as mucinous unknown) carcinoma. If there are suspicious calcifications (unknown) (no (unknown) (unknown) examination (units (un known) date) unknown) (unknown) (no (unknown) (unknown) for 3 time (units (unk nown) date) points, with unknown) subtraction images and maximum intensity projections (unknown) (no (unknown) (unknown) generated. (units (unk nown) date) Delayed sagittal unknown) FLASH images with fat saturation were also (unknown) (no (unknown) (unknown) has a high (units (unk nown) date) sensitivity and a unknown) moderate specificity for detecting and excluding (unknown) (no (unknown) (unknown) hyperplasia, (units (u nknown) date) hormonally unknown) stimulated glandular tissue, fat necrosis, or radial (unknown) (no (unknown) (unknown) injection of (units (u nknown) date) contrast, unknown) sequential 1-minute axial 3D FLASH with fat saturation (unknown) (no (unknown) (unknown) internal biopsy (units (unknown) date) clip, about 3 unknown) centimeters from the nipple. (unknown) (no (unknown) (unknown) invasive (units (unkno wn) date) unknown) (unknown) (no (unknown) (unknown) irregular (units (unkn own) date) unknown) (unknown) (no (unknown) (unknown) is an irregular (units (unknown) date) mass with unknown) heterogeneous enhancement and regular margins (unknown) (no (unknown) (unknown) left (units (unkno wn) date) unknown) (unknown) (no (unknown) (unknown) lesion detection (units (unknown) date) and unknown) characterization, pharmacokinetic analysis, with further (unknown) (no (unknown) (unknown) mammogram. No (units ( unknown) date) suspicious unknown) axillary adenopathy is seen. (unknown) (no (unknown) (unknown) mammographic (units (u nknown) date) follow-up are unknown) recommended. MRI is not sensitive for detecting (unknown) (no (unknown) (unknown) mammography, (units (u nknown) date) which could not be unknown) targeted on prior stereotactic biopsy. (unknown) (no (unknown) (unknown) margins the 12 (units (unknown) date) o'clock position unknown) the right breast measuring 17 x 14 x 9 (unknown) (no (unknown) (unknown) masses. (units (unkno wn) date) unknown) (unknown) (no (unknown) (unknown) mastitis, hormone (units (unknown) date) unknown) (unknown) (no (unknown) (unknown) measuring 13 x 10 (units (unknown) date) unknown) (unknown) (no (unknown) (unknown) measuring 13 x 12 (units (unknown) date) unknown) (unknown) (no (unknown) (unknown) millimeters, with (units (unknown) date) unknown) (unknown) (no (unknown) (unknown) minimal (units (unkno wn) date) unknown) (unknown) (no (unknown) (unknown) needed, (units (unkno wn) date) second-look unknown) ultrasound could be used to target the 7 o'clock and/or to (unknown) (no (unknown) (unknown) neoplasms can be (units (unknown) date) hidden by unknown) co-existent and benign enhancement caused by (unknown) (no (unknown) (unknown) nipple, there (units ( unknown) date) unknown) (unknown) (no (unknown) (unknown) non mass (units (unkno wn) date) unknown) (unknown) (no (unknown) (unknown) not acquired. (units ( unknown) date) unknown) (unknown) (no (unknown) (unknown) obtained. (units (unkn own) date) unknown) (unknown) (no (unknown) (unknown) or (units (unkno wn) date) unknown) (unknown) (no (unknown) (unknown) pathology. (units (unk n) date) unknown) (unknown) (no (unknown) (unknown) physician (units (unkn own) date) unknown) (unknown) (no (unknown) (unknown) positive (units (unkno wn) date) examinations can unknown) occur in a number of circumstances, including breasts (unknown) (no (unknown) (unknown) recently been (units ( unknown) date) subject to unknown) invasive procedures and those that contain atypical (unknown) (no (unknown) (unknown) review for (units (unk nown) date) interpretation, unknown) was performed. (unknown) (no (unknown) (unknown) scars. (units (unkno wn) date) unknown) (unknown) (no (unknown) (unknown) seen on (units (unkno wn) date) unknown) (unknown) (no (unknown) (unknown) sequences (units (unkn own) date) unknown) (unknown) (no (unknown) (unknown) that have (units (unkn own) date) unknown) (unknown) (no (unknown) (unknown) the patient did (units (unknown) date) not tolerate unknown) further imaging and sagittal views of the left (unknown) (no (unknown) (unknown) therapy effects, (units (unknown) date) radiation therapy, unknown) , and recent biopsy or surgery. (unknown) (no (unknown) (unknown) there is (units (unkno wn) date) unknown) (unknown) (no (unknown) (unknown) x 14 millimeters. (units (unknown) date) unknown) (unknown) (no (unknown) (unknown) x 8 millimeters. (units (unknown) date) unknown) Social History No information. Vital Signs No information.
--- NOTE | 2022-04-30 13:42 | XRAY Report ---
PROCEDURE: Foot 3 View LT INDICATIONS: Trauma TECHNIQUE: 3 views of the foot were acquired. COMPARISON: None FINDINGS: Bones: Osteopenia, limiting evaluation. Mild scattered arthrosis. No displaced fracture. No dislocati on. Soft tissues: No suspicious calcifications. IMPRESSION: No acute radiographic abnormality. If there is high concern for further derangement, consider MRI lurdes luation. Reviewed by: Júnior Barron MD on 04/30/2022 1:41 PM PST Approved by: Júnior Barron MD on 04/30/2022 1:41 PM PST Station ID: [id number]
== END 2022-04-30 16:22 | disposition left against medical advice (07) ==
LOC: ED 13:18
DX: Z53.29 Procedure and treatment not carried out because of patient's decision for other reasons (principal)

== ENCOUNTER 2022-05-07 11:37 | Emergency (ER) | payer MEDICARE ==
--- NOTE | 2022-05-07 12:41 | Ultrasound Report ---
PROCEDURE: Duplex Ext Veins Left INDICATIONS: pain/swelling TECHNIQUE: Real-time imaging, as well as color and pulse Doppler interrogation, were performed of the lower extr emity deep veins from the inguinal ligament to the popliteal fossa. COMPARISON: None. FINDINGS: The deep veins are normally compressible, and free of intraluminal thrombus. Color and pu lse Doppler demonstrate normal phasic intraluminal flow. There is normal augmentation response to di stal compression maneuver. Left popliteal fossa cyst with debris measuring 4.3 x 1.6 x 1.6 cm. IMPRESSION: No left lower extremity DVT. Reviewed by: Jordon Ortega MD on 05/07/2022 12:40 PM PST Approved by: Jordon Ortega MD on 05/07/2022 12:40 PM PST Station ID: [id number]
--- NOTE | 2022-05-07 13:44 | ED Physician Documentation ---
History of Present Illness - Stated complaint Stated Complaint: L FOOT PX - Chief complaint Chief Complaint: Ext Problem - History obtained from History obtained from: Patient, Family - Additonal information Additional information: The patient comes to the emergency department with her for chief complaint of left foot and ankle pain and swelling for approximately the last week. She states she had a mastectomy just before that and is concerned that there is some connection. She did not have any injury whatsoever. She states that she has not had any pain side of the ankle and foot. The patient was already seen in the walk-in clinic and also had x-rays here, and these were negative for any bony issues. She was sent here by MALATHI Barboza at the walk- in for possible DVT. The patient does have breast cancer currently but has no history of DVT or PE. She states that she has not had any shortness of breath or chest pain. The patient states that when the swelling first started, she had sharp pains in her foot and ankle but now, and seems to have gotten better. She also noticed bruising over the dorsum of her ankle and foot but this has also subsided. Review of Systems Ten Systems: 10 systems reviewed and negative Constitutional: reports: Reviewed and negative Eyes: reports: Reviewed and negative Ears: reports: Reviewed and negative Nose: reports: Reviewed and negative Throat: reports: Reviewed and negative Cardiac: reports: Reviewed and negative Respiratory: reports: Reviewed and negative GI: reports: Reviewed and negative : reports: Reviewed and negative Skin: reports: Reviewed and negative Musculoskeletal: reports: Extremity pain, Extremity swelling, Pain with weight bearing Neurologic: reports: Reviewed and negative Psychiatric: reports: Reviewed and negative Endocrine: reports: Reviewed and negative Immunocompromised: reports: Reviewed and negative PD PAST MEDICAL HISTORY - Past Medical History Past Medical History: Yes Cardiovascular: Hypertension Respiratory: Other Neuro: None GI: GERD, Ulcers, Colon polyps, Hepatitis, Cirrhosis : Kidney stones, Other HEENT: None Psych: None Musculoskeletal: Osteoporosis Derm: Other - Past Surgical History General: Gastric surgery, Hiatal hernia repair, Colonoscopy, 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: Tubal ligation - Present Medications Home Medications: Ambulatory Orders Medication Instructions Recorded Confirmed Omeprazole [PriLOSEC] 20 mg PO DAILY 09/05/15 04/02/22 Metoprolol Succinate [Toprol Xl] 25 mg PO ONCE 03/28/22 04/02/22 oxyCODONE [Roxicodone] 5 mg PO Q4H PRN #9 tablet 04/02/22 - Allergies Allergies/Adverse Reactions: Allergies Allergy/AdvReac Type Severity Reaction Status Date / Time NSAIDS (Non-Steroidal Allergy Unknown Unknown Verified 05/07/22 11:56 Anti-Inflamma Penicillins Allergy Rash Verified 05/07/22 11:56 - Social History Does the pt smoke?: Yes Smoking Status: Current every day smoker Does the pt drink ETOH?: Yes Does the pt have substance abuse?: No - Immunizations Immunizations are current?: Yes PD ED PE NORMAL - Vitals Vital signs reviewed: Yes - General General: Alert and oriented X 3, No acute distress, Well developed/nourished - HEENT HEENT: Atraumatic, PERRL, EOMI, Moist mucous membranes - Neck Neck: Supple, no meningeal sign - Cardiac Cardiac: Strong equal pulses - Respiratory Respiratory: No respiratory distress - Derm Derm: Warm and dry, Other (Subsiding contusion, very faint, over left foot dorsum.) - Extremities Extremities: No deformity, Other (Moderate edema of left ankle and proximal foot.) - Neuro Neuro: Alert and oriented X 3, health services director 2-12 intact, Normal speech - Psych Psych: Normal mood, Normal affect Results - Vitals Vitals: Vital Signs - 24 hr 05/07/22 11:52 Temperature 36.5 C Heart Rate 75 Respiratory 16 Rate Blood Pressure 168/73 H O2 Saturation 100 Oxygen O2 Source Room air - Rads (name of study) us LLE Radiology: Final report received, EMP read indepedently, See rad report (Cuellar's cyst) PD MEDICAL DECISION MAKING - ED course Complexity details: reviewed results, re-evaluated patient, considered differential, d/w patient ED course: The patient was worked up with ultrasound of her left lower extremity, which was unremarkable except for a ruptured Cuellar's cyst. I discussed with the patient that she does not have any serious cause of her swelling at this time. We have discussed management of the symptoms at home and the expected self-limited nature of symptoms. We have discussed the usual indications for follow-up and return. Departure - Departure Disposition: 01 Home, Self Care Clinical Impression: Ruptured Bakers cyst Condition: Stable Instructions: ED Cyst Cuellar Comments: Your ultrasound does not show any blood clots or any other concerning abnormalities. It does show that you had a Cuellar's cyst behind your knee, which has popped open, as it is very common. It will take some time for the swelling to work out of your ankle and foot, but will happen. Please continue propping your foot up whenever you can and apply an ice packs when possible. You may also use compression stockings to help apply some pressure to the swollen area and work some of the fluid out. It does not sound as though you have had any injury and your x-rays were also negative, so there is no reason to suspect a bony injury or issue. Please follow-up with your primary care physician as needed.
[2022-05-07 14:00] VITALS: BP 140/70
== END 2022-05-07 13:59 | disposition home or self-care (01) ==
LOC: ED 11:37
DX: M66.0 Rupture of popliteal cyst (principal); F17.200 Nicotine dependence, unspecified, uncomplicated
CPT/HCPCS: 99284

== ENCOUNTER 2023-02-18 21:03 | Outpatient (CLI) | payer MEDICARE | END 2023-02-18 23:59 | disposition EMS.NT | LOC: EMS 21:03 | DX: R55 Syncope and collapse (principal) ==

== ENCOUNTER 2025-02-27 00:02 | Inpatient (IN) ==
[2025-02-27] MEDS: fentaNYL 100 MCG/2 ML VIAL IVP STA ×2 (00:29→06:52)
[2025-02-27 00:43] LABS: HCT - HEMATOCRIT 30.3 % (37.0-47.0); HGB - HEMOGLOBIN 9.1 g/dL (12.0-16.0); MEAN PLATELET VOLUME 10.5 fL (7.9-10.8); NRBC ABSOLUTE COUNT (AUTO) 0.00 x10^3/uL; NUCLEATED RED BLOOD CELLS AUTO 0.0 /100WBC; PLT - PLATELET COUNT 195 10^3/uL (130-450); RED CELL DISTRIBUTION WIDTH 19.6 % (12.0-15.0)
--- NOTE | 2025-02-27 00:48 | XRAY Report ---
PROCEDURE: XR Chest 1V INDICATIONS: glf, new 02 req TECHNIQUE: One view of the chest was acquired. COMPARISON: None. FINDINGS: Surgical changes and devices: None. Lungs and pleura: No pleural effusions or pneumothorax. No consolidation. Mediastinum: Mediastinal contours appear normal. Heart size is normal. Bones and chest wall: No suspicious bony lesions. Overlying soft tissues appear unremarkable. IMPRESSION: No acute cardiopulmonary process. Reviewed by: Ciro Fair MD on 02/27/2025 12:45 AM PDT Approved by: Ciro Fair MD on 02/27/2025 12:45 AM PDT Station ID: [id number]
--- NOTE | 2025-02-27 00:49 | XRAY Report ---
PROCEDURE: XR Hip w/Pelvis 2-3V LT INDICATIONS: glf, hip deformity TECHNIQUE: 3 views of the hip were acquired. COMPARISON: None. FINDINGS: Bones: Acute comminuted fracture involving the intertrochanteric region of left proximal femur is seen with slight superior migration of proximal femoral shaft in relation to femoral head. Superiorly displaced greater trochanteric fragment is seen. Medially displaced lesser trochanteric fragment is also noted. Moderate bilateral hip joint osteoarthritis. No evidence of avascular necrosis of femoral head. No other fracture or dislocation. No suspicious bony lesions. Soft tissues: No suspicious soft tissue calcifications or masses. IMPRESSION: Acute comminuted and displaced intertrochanteric fracture of left proximal femur as above. Reviewed by: Ciro Fair MD on 02/27/2025 12:46 AM PDT Approved by: Ciro Fair MD on 02/27/2025 12:46 AM PDT Station ID: [id number]
[2025-02-27 01:02] LABS: ETOH - ETHANOL 319.7 mg/dL
[2025-02-27 01:04] LABS: ALT ALANINE AMINOTRANSFERASE 18.0 IU/L (10-60); AST ASPARTATE AMINOTRANSFERASE 43.0 IU/L (10-42); BUN - BLOOD UREA NITROGEN 9.0 mg/dL (6-20); CARBON DIOXIDE - CO2 19.0 mmol/L (21-32); CREATININE 0.6 mg/dL (0.6-1.3); GFR - MDRD 98.0 (>89)
--- OUTSIDE RECORDS SUMMARY | 2025-02-27 01:46 | EXTERNAL MEDICAL SUMMARY RPT | Continuity of Care Document ---
Author Organization [facility] Address [address] [place] [id number] Phone Problems date description facility 2024-12-27 18:33 Dizziness and giddiness [facility] 2025-01-08 00:02 Iron deficiency anemia, unspeci fied [facility] 2025-01-08 00:02 Nicotine dependence, cigarettes , uncomplicated [facility] 2025-01-08 00:02 Essential (primary) hypertensio n [facility] 2025-01-08 00:02 Other secondary hypertension [employer] 2025-01-08 00:02 Gastro-esophageal reflux diseas e without esophagitis [facility] 2025-01-08 00:02 Age-related osteopor osis without current pathological fracture [facility] 2025-01-08 00:02 Asymptomatic menopausal state [employer] 2025-01-08 00:02 Other chcf (current) drug therapy [facility] 2025-01-08 10:35 Age-related osteopor osis without current pathological fracture [facility] 2025-01-08 10:35 Asymptomatic menopausal state [employer] 2025-01-18 10:54 Age-related osteopor osis without current pathological fracture [facility] 2025-01-18 10:54 Asymptomatic menopausal state [employer] 2025-01-18 10:58 Age-related osteopor osis without current pathological fracture [facility] 2025-01-18 10:58 Asymptomatic menopausal state [employer] 2025-02-04 11:01 Age-related osteopor osis without current pathological fracture [facility] 2025-02-04 11:01 Asymptomatic menopausal state [employer] 2025-02-04 11:20 Iron deficiency anemia, unspeci fied [facility] 2025-02-04 11:20 Essential (primary) hypertensio n [facility] 2025-02-04 11:20 Other secondary hypertension [employer] 2025-02-04 11:20 Encounter for screen ing for diseases of the blood and blood-forming organs and certain disorders involving the immune mechanism [facility] 2025-02-04 12:13 Iron deficiency anemia, unspeci fied [facility] 2025-02-04 12:13 Essential (primary) hypertensio n [facility] 2025-02-04 12:13 Other secondary hypertension [facility] 2025-02-04 12:13 Encounter for screen ing for diseases of the blood and blood-forming organs and certain disorders involving the immune mechanism [facility] 2025-02-05 00:01 Age-related osteopor osis without current pathological fracture [employer] 2025-02-05 00:01 [facility]ymptomatic [facility] state [facility] 2025-02-05 00:04 Iron deficiency anemia, unspeci fied [facility] 2025-02-05 00:04 Essential (primary) hypertensio n [facility] 2025-02-05 00:04 Other secondary hypertension [employer] 2025-02-05 00:04 Encounter for screen ing for diseases of the blood and blood-forming organs and certain disorders involving the immune mechanism [employer] 2025-02-05 14:25 Iron deficiency anemia, unspeci [facility] [employer] Results/Labs test date facility value unit notes Result panel 1 NUCLEATED RED BLOOD CELLS AUTO 2025-02-04 11:39 [facility] 0.0 /100wbc (missing) NRBC ABSOLUTE COUNT (AUTO) 2025-02-04 11:39 [facility] 0.00 x10 3/ul (missing) BASOPHILS # (AUTO) 2025-02-04 11:39 [facility] 0.1 10 3/ul (missing) EOSINOPHILS # (AUTO) 2025-02-04 11:39 [facility] 0.2 10 3/ul (missing) MONOCYTES # (AUTO) 2025-02-04 11:39 [facility] 0.6 10 3/ul (missing) CREATININE 2025-02-04 11:39 [facility] 0.7 mg/dl As of December 2022 testing method has changed, this may include reference ranges. BILIRUBIN,TOTAL 2025-02-04 11:39 [facility] 0.8 mg/dl As of December 2022 testing method has changed, this may include reference ranges. LYMPHOCYTES # (AUTO) 2025-02-04 11:39 [facility] 0.9 10 3/ul (missing) RBC MORPHOLOGY (MULTIPLE) 2025-02-04 11:39 [facility] 1+ MICROCYTOSIS (missing) (missing) LDL/HDL RATIO 2025-02-04 11:39 [facility] 1.2 (missing) (missing) ALBUMIN/GLOBULIN RATIO 2025-02-04 11:39 [facility] 1.5 (missing) (missing) CALCIUM 2025-02-04 11:39 [employer] 10.0 mg/dl As of December 2022 testing method has changed, this may include reference ranges. CHLORIDE 2025-02-04 11:39 [facility] 103 mmol/l As of December 2022 testing method has changed, this may include reference ranges. HDL CHOLESTEROL 2025-02-04 11:39 [facility] 112 mg/dl Social History date description facility
[2025-02-27] MEDS: HYDROmorphone 0.5 MG/0.5 ML SYRINGE IVP STA (03:04)
--- NOTE | 2025-02-27 03:50 | ED Physician Documentation ---
History of Present Illness Stated complaint Stated Complaint: GLF/ L HIP INJ Chief complaint Chief Complaint: Trauma Ext Additonal information Additional information: Patient is a 74-year-old female who is brought in by EMS after she had a ground- level fall. Patient states that she had been in joint cocktail at home with her this evening, when she fell. She is not entirely sure why she fell. States that she immediately had pain in her left hip. EMS was called. EMS reports significant deformity to the left hip, and they did give her 50 of fentanyl over to the hospital. GCS was 15 with reassuring vital signs throughout her transport. Denies blood thinner use. Patient shares to me that she has a history of multiple versions of cancer but in remission from all of them. Denies history of other heart or lung problems. Denies diabetes. States that she is currently being worked up for osteoporosis. Rates the pain in her left hip right now is 6 out of 10. She denies pain in her neck, back, face, chest, abdomen, right lower extremity, or bilateral upper extremities. Review of Systems Status of ROS: See HPI Meds/Allgy Home Medications Ambulatory Orders Medication Instructions Recorded Confirmed omeprazole 20 mg capsule,delayed 20 mg PO DAILY 01/07/25 release blood pressure test kit-wrist 12/27/24 01/07/25 (Procare Wrist Blood Pressure Monitor kit) metoprolol succinate 25 mg 25 mg PO QDAY high bp #90 t abs 01/07/25 01/07/25 tablet,extended release 24 hr Allergies Allergies Allergy/AdvReac Type Severity Reaction Status Date / Time NSAIDS (Non-Steroidal Allergy Severe Unknown Verified 02/27/25 00:12 Anti-Inflamma Penicillins Allergy Severe Unknown Verified 02/27/25 00:12 [facility] Active Problems All Active Problems (Updated 02/27/25 @ 04:31 by Maria Del Rosario Carbone MD) Prolonged Q-T interval on ECG (Acute) Closed left hip fracture (Acute) Intertrochanteric fracture of left hip (Acute) Hip fracture, left (Acute) Medication management (Chronic) Hepatitis C (Chronic) Cirrhosis (Chronic) Tobacco dependence (Chronic) Osteoporosis (Chronic) Iron deficiency anemia (Chronic) Cigarette smoker (Chronic) Hypertension (Chronic) GERD (gastroesophageal reflux disease) (Chronic) Underweight (Chronic) Body mass index less than 19, adult (Chronic) Irregular heart beats (Chronic) Medical History Medical History (Updated 02/27/25 @ 04:31 by Maria Del Rosario Carbone MD) Chronic kidney disease, stage 3 Adenocarcinoma, breast ER positive Status post chemoradiation Hx of chemoradiation therapy Subcutaneous nodule of abdominal wall Malignant neoplasm of pharynx, unspecified Jugular vein thrombosis Localized swelling, mass and lump, right lower limb Neck mass Duodenal ulcer hemorrhage prior to 2011 History of squamous cell carcinoma of skin Localized swelling of lower leg Unspecified cirrhosis of liver Unspecified fracture of upper end of right humerus, subsequent encounter for fracture with routine healing Esophageal varices grade 2 Abdominal hernia Duodenal ulcer Surgical History Surgical History (Updated 01/07/25 @ 16:15 by POPPY Zaragoza) Abdominal wall hernia H/O abdominal surgery hemorrhagic duodenal ulcer H/O right mastectomy Social History Social History (Updated 01/07/25 @ 15:27 by Og Lobato LPN) Smoking Status: Unknown if ever smoked Number of Years Smoked: 50 How many cigarettes a day do you smoke? (20 cigarettes=1 Pk): 10 Do you dip or chew tobacco?: No Do you vape?: No Patient requests smoking cessation consult: No Initiate information on smoking cessation: No Living arrangement: At home Marital Status: Living Condition: With spouse/s.o. Support Person: Yes Physical Activity: Walking Level: Independent Do you feel safe in your home environment?: Yes History of physical, verbal, emotional, or financial abuse?: No Frequency: Weekly Substance Use: denies use Exam Exam Vital Signs: Vital Signs x48h Temp Pulse Resp BP Pulse Ox O2 Flow Rate 02/27/25 03:09 73 14 123/56 L 95 2 02/27/25 01:02 69 18 151/59 H 98 02/27/25 00:09 36.1 C L 77 16 166/64 H 95 Constitutional Appears thin, cachectic, appears approximately stated age HENMT normocephalic, head/scalp atraumatic, EACs normal, TMs normal bilaterally, nasal mucous membranes normal and oropharynx normal Eyes PERRL, conjunctivae normal, normal visual frank by confrontation and visual acuity normal Neck/C-Spine visual inspection normal, trachea midline, cervical spine nontender, cervical full ROM noted and supple Chest palpation of chest normal Respiratory breath sounds equal bilaterally, normal respiratory effort, clear to auscultation bilaterally, no wheezes and no use of accessory muscles Cardiovascular normal heart rate noted, regular rhythm noted, no murmur and peripheral pulses 2+ throughout Gastrointestinal abdomen soft to palpation, nontender to palpation and nontender to percussion Genitourinary no CVA tenderness Back/Pelvis no thoracic spine tenderness and no lumbar spine tenderness No step-offs, no deformities in thoracic, lumbar, cervical spine Extremities Significant swelling and deformity to left anterior/lateral hip. Left leg appears externally rotated and foreshortened. Right upper and left upper extremity put through full range of motion without deformity or tenderness. Right lower extremity put through full range of motion without deformity or tenderness. Dopplers present in bilateral lower extremities. Neurology Alert and oriented x 3 Cranial nerves II through XII intact. Sensation is intact throughout habitus. Strength is 5 out of 5 in bilateral upper extremities. 5 out of 5 strength in right lower extremity. Psychiatry oriented x3 Results Vitals Vitals: Vital Signs - 24 hr 02/27/25 00:09 02/27/25 00:29 02/27/25 01:02 Temperature 36.1 C L Temperature Source Tympanic Pulse Rate 77 Pulse Strength Weak Respiratory Rate 16 Blood Pressure 166/64 H O2 Saturation 95 O2 Source Room air If not protocol: Oxygen Flow, liters/minute Pain Intensity 4 4 02/27/25 01:02 02/27/25 03:04 02/27/25 03:09 Temperature Temperature Source Pulse Rate 69 73 Pulse Strength Respiratory Rate 18 14 Blood Pressure 151/59 H 123/56 L O2 Saturation 98 95 O2 Source Room air Nasal cannula If not protocol: Oxygen Flow, liters/minute 2 Pain Intensity 2 8 6 Oxygen O2 Source Nasal cannula Labs Labs: Laboratory Tests 02/27/25 00:39 WBC 6.5 RBC 3.15 L Hgb 9.1 L Hct 30.3 L MCV 96.2 MCH 28.9 MCHC 30.0 L RDW 19.6 H Plt Count 195 MPV 10.5 Neut # (Auto) 4.5 Lymph # (Auto) 1.2 L Duc[place] # (Auto) 0.5 Eos # (Auto) 0.1 Baso # (Auto) 0.1 Absolute Nucleated RBC 0.00 Nucleated RBC % 0.0 Sodium 133 L Potassium 3.5 Chloride 97 L Carbon Dioxide 19 L Anion Gap 17.0 H BUN 9 Creatinine 0.6 Estimated GFR (MDRD) 98 Glucose 77 Calcium 9.4 Total Bilirubin 0.7 AST 43 H ALT 18 Alkaline Phosphatase 117 Total Protein 7.3 Albumin 4.4 Globulin 2.9 Albumin/Globulin Ratio 1.5 Ethyl Alcohol 319.7 PD Medical Decision Making ED course ED course: Assessment: 74-year-old female presenting after ground-level fall with obvious deformity left hip. On exam she appears mildly inebriated but is alert and oriented. She is flexing extending her left foot. There is obvious deformity of the left anterior and lateral hip. She is neurovascularly intact distal to her injury, with positive Dopplers. DDx: Includes was not limited to, anterior hip dislocation, femur fracture, femoral neck fracture, intertrochanteric fracture, pelvic fracture, pubic rami fracture, pelvic ring fracture, lumbar fracture, skull fracture, traumatic subarachnoid hemorrhage, subdural hemorrhage, etc. Workup: CBC grossly within normal limits apart from hemoglobin of 9.1, hematocrit of 30.3. CMP with a sodium of 133, anion gap of 17, AST of 43, otherwise no other significant abnormalities. Alcohol level 319.7. X-ray of pelvis and left femur demonstrates an intertrochanteric fracture that is comminuted and displaced. CT findings otherwise demonstrate wall thickening of the ascending colon, as well as thickening of the gastric antrum. She does have inner thoracic and lumbar spine some old appearing chronic vertebral fractures. Treatment: Fentanyl, Dilaudid Discussion: This patient is admitted to the hospital, after a spoke to both hospitalist and Dr. Syed/Orthopedic surgery. Plan for this patient will be for her to be operated on tomorrow afternoon, versus Saturday morning. Patient was agreeable with this plan. She otherwise remained hemodynamically stable in the ER, and her pain was well-controlled. During my shift she was transferred to the floor. Discharge Plan Discharge Patient Disposition: 67 [facility] DC/Xfer Condition: Stable Clinical Impression: Hip fracture, left, Intertrochanteric fracture of left hip Interventions: ED Admission Assessment Last Done: 02/27/25 04:56
--- NOTE | 2025-02-27 04:33 | HISTORY & PHYSICAL EXAMINATION ---
Chief Complaint Chief Complaint Chief Complaint: mechanical fall History of Present Illness History of Present Illness HPI Comment/Other: Patient is 74 y/o F with hx of HTN and GERD , alcohol use and prior hx of Ascites and monthly fluid draining and last paracentesis was in 2009 as per patient, presented to hospital for evaluation of mechanical fall, patient tripped on carpet and fell on left side, since then c/o LLE pain at hip, unable to bear weight and not able to ambulate, during ER work up patient is found to have left hip fracture and hospitalist team is asked to admit patient, as per Dr Shah who also did labs and EKG, which is consistent with mild dehydration and acidosis and Prolojgned QT 501 msec on EKG Ortho service is notified Meds/Allgy Home Medications Ambulatory Orders Medication Instructions Recorded Confirmed omeprazole 20 mg capsule,delayed 20 mg PO DAILY 01/07/25 release blood pressure test kit-wrist 12/27/24 01/07/25 (Procare Wrist Blood Pressure Monitor kit) metoprolol succinate 25 mg 25 mg PO QDAY high bp #90 t abs 01/07/25 01/07/25 tablet,extended release 24 hr Allergies Allergies Allergy/AdvReac Type Severity Reaction Status Date / Time NSAIDS (Non-Steroidal Allergy Severe Unknown Verified 02/27/25 00:12 Anti-Inflamma Penicillins Allergy Severe Unknown Verified 02/27/25 00:12 [facility] Active Problems All Active Problems (Updated 02/27/25 @ 04:31 by Maria Del Rosario Carbone MD) Prolonged Q-T interval on ECG (Acute) Closed left hip fracture (Acute) Intertrochanteric fracture of left hip (Acute) Hip fracture, left (Acute) Medication management (Chronic) Hepatitis C (Chronic) Cirrhosis (Chronic) Tobacco dependence (Chronic) Osteoporosis (Chronic) Iron deficiency anemia (Chronic) Cigarette smoker (Chronic) Hypertension (Chronic) GERD (gastroesophageal reflux disease) (Chronic) Underweight (Chronic) Body mass index less than 19, adult (Chronic) Irregular heart beats (Chronic) Medical History Medical History (Updated 02/27/25 @ 04:31 by Maria Del Rosario Carbone MD) Chronic kidney disease, stage 3 Adenocarcinoma, breast ER positive Status post chemoradiation Hx of chemoradiation therapy Subcutaneous nodule of abdominal wall Malignant neoplasm of pharynx, unspecified Jugular vein thrombosis Localized swelling, mass and lump, right lower limb Neck mass Duodenal ulcer hemorrhage prior to 2011 History of squamous cell carcinoma of skin Localized swelling of lower leg Unspecified cirrhosis of liver Unspecified fracture of upper end of right humerus, subsequent encounter for fracture with routine healing Esophageal varices grade 2 Abdominal hernia Duodenal ulcer Surgical History Surgical History (Updated 01/07/25 @ 16:15 by POPPY Zaragoza) Abdominal wall hernia H/O abdominal surgery hemorrhagic duodenal ulcer H/O right mastectomy Social History Social History (Updated 01/07/25 @ 15:27 by Og Lobato LPN) Number of Years Smoked: 50 How many cigarettes a day do you smoke? (20 cigarettes=1 Pk): 10 Do you dip or chew tobacco?: No Do you vape?: No Patient requests smoking cessation consult: No Initiate information on smoking cessation: No Living arrangement: At home Marital Status: Living Condition: With spouse/s.o. Support Person: Yes Physical Activity: Walking Level: Independent Do you feel safe in your home environment?: Yes History of physical, verbal, emotional, or financial abuse?: No Frequency: Weekly Substance Use: denies use Review of Systems Status of ROS: 10 or more systems reviewed and unremarkable except as noted in history and below Exam Exam Vital Signs: Vital Signs x48h Temp Pulse Resp BP Pulse Ox O2 Flow Rate 02/27/25 03:09 73 14 123/56 L 95 2 02/27/25 01:02 69 18 151/59 H 98 02/27/25 00:09 36.1 C L 77 16 166/64 H 95 RN Leslie, is present in room, exam was limited by nature of visit, televisit, Patient appears comfortable, sitting, in bed, defer ER MD note for more detailed exam Conclusion/Plan Problem List (1) Closed left hip fracture: Plan: - Admit to med surg with Tele as per Dr Shah's view of EKG shows prolonged QT - Ortho service is notified by Dr Shah, - Keep NPO after 8am - Patient denies any hx of CAD, CVA or any medical history of ongoing medical problems - Appreciate ortho consult, (2) Prolonged Q-T interval on ECG: Plan - Rounding team to verify images of EKG ( I am unable to open) - Recheck for QT interval Hyponatremia, mild acidosis - Mild dehydration - Patient admits alcohol use today - Continue IVF Full code Lab Results 02/27/25 00:39 02/27/25 00:39
--- OUTSIDE RECORDS SUMMARY | 2025-02-27 04:41 | EXTERNAL MEDICAL SUMMARY RPT | Continuity of Care Document ---
Author Organization [facility] Address [address] [place] [id number] Phone Problems date description facility 2024-12-27 18:33 Dizziness and giddiness [employer] 2025-01-08 00:02 Iron deficiency anemia, unspeci fied [facility] [facility] 2025-01-08 00:02 Nicotine dependence, cigarettes , uncomplicated [facility] [facility] 2025-01-08 00:02 Essential (primary) hypertensio n [employer] 2025-01-08 00:02 Other secondary hypertension [employer] 2025-01-08 00:02 Gastro-esophageal reflux diseas e without esophagitis [facility] [facility] 2025-01-08 00:02 Age-related osteopor osis without current pathological fracture [employer] 2025-01-08 00:02 Asymptomatic menopausal state [employer] 2025-01-08 00:02 Other chcf (current) drug therapy [facility] 2025-01-08 10:35 Age-related osteopor osis without current pathological fracture [facility] [facility] 2025-01-08 10:35 Asymptomatic menopausal state [employer] 2025-01-18 10:54 Age-related osteopor osis without current pathological fracture [employer] 2025-01-18 10:54 Asymptomatic menopausal state [employer] 2025-01-18 10:58 Age-related osteopor osis without current pathological fracture [employer] 2025-01-18 10:58 Asymptomatic menopausal state [employer] 2025-02-04 11:01 Age-related osteopor osis without current pathological fracture [employer] [facility] 2025-02-04 11:01 Asymptomatic menopausal state [employer] 2025-02-04 11:20 Iron deficiency anemia, unspeci fied [facility] 2025-02-04 11:20 Essential (primary) hypertensio n [facility] [facility] 2025-02-04 11:20 Other secondary hypertension [facility] 2025-02-04 11:20 Encounter for screen ing for diseases of the blood and blood-forming organs and certain disorders involving the immune mechanism [facility] 2025-02-04 12:13 Iron deficiency anemia, unspeci fied [facility] 2025-02-04 12:13 Essential (primary) hypertensio n [facility] 2025-02-04 12:13 [facility] 2025-02-04 12:13 Encounter for screen ing for diseases of the blood and blood-forming organs and certain disorders involving the immune mechanism [facility] 2025-02-05 00:01 Age-related osteopor osis without current pathological fracture [facility] 2025-02-05 00:01 [facility]ymptomatic [facility] state [facility] 2025-02-05 00:04 Iron deficiency anemia, unspeci fied [facility] 2025-02-05 00:04 Essential (primary) hypertensio n [employer] 2025-02-05 00:04 Other secondary hypertension [facility] 2025-02-05 00:04 Encounter for screen ing for diseases of the blood and blood-forming organs and certain disorders involving the immune mechanism [facility] 2025-02-05 14:25 Iron deficiency anemia, unspeci [facility] Results/Labs test date facility value unit notes Result panel 1 NUCLEATED RED BLOOD CELLS AUTO 2025-02-04 11:39 [facility] 0.0 /100wbc (missing) NR[facility] ABSOLUTE COUNT (AUTO) 2025-02-04 11:39 [facility] 0.00 x10 3/ul (missing) BASOPHILS # (AUTO) 2025-02-04 11:39 [facility] 0.1 10 3/ul (missing) EOSINOPHILS # (AUTO) 2025-02-04 11:39 [facility] 0.2 10 3/ul (missing) MONOCYTES # (AUTO) 2025-02-04 11:39 [facility] 0.6 10 3/ul (missing) CREATININE 2025-02-04 11:39 [facility] 0.7 mg/dl As of December 2022 testing method has changed, this may include reference ranges. BILIRUBIN,TOTAL 2025-02-04 11:39 [facility] 0.8 mg/dl As of December 2022 testing method has changed, this may include reference ranges. LYMPHOCYTES # (AUTO) 2025-02-04 11:39 [facility] 0.9 10 3/ul (missing) RBC MORPHOLOGY (MULTIPLE) 2025-02-04 11:39 [facility] 1+ MICROCYTOSIS (missing) (missing) LDL/HDL RATIO 2025-02-04 11:39 [facility] 1.2 (missing) (missing) ALBUMIN/GLOBULIN RATIO 2025-02-04 11:39 [facility] 1.5 (missing) (missing) CALCIUM 2025-02-04 11:39 [facility] 10.0 mg/dl As of December 2022 testing method has changed, this may include reference ranges. CHLORIDE 2025-02-04 11:39 [facility] 103 mmol/l As of December 2022 testing method has changed, this may include reference ranges. HDL CHOLESTEROL 2025-02-04 11:39 [facility] 112 mg/dl Social History date description facility
--- NOTE | 2025-02-27 05:29 | PROVIDER PROGRESS NOTE ---
Catering Coordinator Note Catering Coordinator Note Catering Coordinator Note: I was contacted by ER MD for abnormal CTAP results which was ordered by ER MD, patient denie any abdominal pain, prior history of ascites, colitis on CTAP, and CT spine old spine fracture, patient has no abdominal symtoms, rounding team to follow, no fever, and low suspicion of infection
[2025-02-27] MEDS ORDERED: SODIUM CHLORIDE FLUSH 0.9% 10 ML SYRINGE IVP PRN (06:09)
[2025-02-27] MEDS: SODIUM CHLORIDE 0.9% 1,000 ML IV SCH (07:00)
[2025-02-27] MEDS: MORPHINE 2 MG/ML CARPUJECT IVP PRN (07:04)
--- NOTE | 2025-02-27 07:04 | PROVIDER PROGRESS NOTE ---
Engineering Program Manager Note Engineering Program Manager Note Engineering Program Manager Note: ER MD notified that patient has abnormal CT AP findings, Considering no abdominal symptoms benign exam as per ER MD and no concern for infection deferring to rounding MD if patient needs further antibiotics or not, Rounding team to f/u with repeat EKG , prolonged QT noed on initial EKG
--- NOTE | 2025-02-27 08:01 | PROVIDER PROGRESS NOTE ---
Subjective Prog Note Date Prog Note Date: 02/27/25 Prog Note Time: 08:01 Subjective Subjective: Patient just admitted earlier today. This is a second visit for today to evaluate for abdominal symptoms given abdominal findings on her CT scan done in the ED. Additionally notable that she had elevated alcohol serologies on arrival over 300. Her EKG also had QT prolongation. We will likely repeat that later on today to ensure that it was not artifact from intoxication. Finally initial labs revealed hyponatremia. Repeating labs later on this morning. Finally she had a awneo-[id number] blood glucose was incidentally drawn this morning which was low. This responded to orange juice. She does not have a history of diabetes. Suspect this is normal variance for her she was asymptomatic. Patient feels like her pain is generally well-controlled at this point in time. She is n.p.o. for procedure. She denies any abdominal pain, diarrhea. She has had a history of normal stools. Denies fevers or chills. Denies nausea or vomiting. She is not having any chest pain or palpitations. Current Medications Current Medications Current Medications: Current Medications Generic Name Dose Route Start Last Admin Trade Name Freq PRN Reason Stop Dose Admin Acetaminophen 650 mg 02/27/25 06:09 Acetaminophen 325 Mg Tablet PO Q4HR PRN Pain 1 to 4, or Fever Hydrocodone Bitart/Acetaminophen 1 tab 02/27/25 06:09 Hydrocod/Acetam 5/325 Mg Tablet PO Q4HR PRN Pain 5 to 7 Hydrocodone Bitart/Acetaminophen 1 tab 02/27/25 06:09 Hydrocod/Acetam 10 Mg/325 Mg Tablet PO Q4HR PRN Pain 8 to 10 Heparin Sodium (Porcine) 5,000 unit 02/27/25 09:00 Heparin 5,000 Unit/Ml Vial SUBQ BID GONZALES Sodium Chloride 1,000 mls @ 75 mls/hr 02/27/25 06:09 02/27/25 07:00 Normal Saline 0.9% IV 75 mls/hr .[id number] GONZALES Administration Morphine Sulfate 2 mg 02/27/25 06:09 02/27/25 07:04 Morphine 2 Mg/Ml Carpuject IVP 2 mg Q2HR PRN Administration Pain 8 to 10 Sodium Chloride 10 ml 02/27/25 06:09 Sodium Chloride Flush 0.9% 10 Ml Syringe IVP PRN PRN NEEDED PER PROVIDER ORDERS Sodium Chloride 10 ml 02/27/25 09:00 Sodium Chloride Flush 0.9% 10 Ml Syringe IVP 0100,0900,1700 GONZALES Objective Vital Signs/Intake & Output Reviewed Vital Signs: Yes Vital Signs: Vital Signs x48h Temp Pulse Pulse Resp BP BP Pulse Ox 02/27/25 05:17 36.5 C 81 18 121/92 H 97 02/27/25 04:56 69 16 136/58 H 100 02/27/25 03:09 73 14 123/56 L 95 02/27/25 01:02 69 18 151/59 H 98 02/27/25 00:09 36.1 C L 77 16 166/64 H 95 O2 Flow Rate 02/27/25 05:17 2 02/27/25 04:56 02/27/25 03:09 2 02/27/25 01:02 02/27/25 00:09 Intake & Output: Intake & Output 02/24/25 02/25/25 02/26/25 02/27/25 23:59 23:59 23:59 23:59 Weight (kg) 44.7 kg Objective Comments/Other: GEN: No acute distress HEENT: NC/AT, normal appearance of external ears and nose. Hearing baseline. Cardiac: Regular rate and rhythm, no murmurs. Pulm: Lungs CTA bilaterally, no cough, no wheezes Abdomen: Soft, nontender, nondistended. No rebound or guarding Neuro: Face symmetric, CN II through XII intact grossly. No significant tremor or tongue fasciculations. Absent asterixis. Psych: Mood euthymic with congruent affect. Lab Results 02/27/25 10:15 02/27/25 10:15 Other Labs: Lab Results x24hrs 02/27/25 02/27/25 Range/Units 07:47 00:39 WBC 6.5 (4.8-10.8) x10^3/uL RBC 3.15 L (4.20-5.40) 10^6/uL Hgb 9.1 L (12.0-16.0) g/dL Hct 30.3 L (37.0-47.0) % MCV 96.2 (81.0-99.0) fL MCH 28.9 (27.0-31.0) pg MCHC 30.0 L (32.0-36.0) g/dL RDW 19.6 H (12.0-15.0) % Plt Count 195 (130-450) 10^3/uL MPV 10.5 (7.9-10.8) fL Neut # (Auto) 4.5 (1.5-6.6) 10^3/uL Lymph # (Auto) 1.2 L (1.5-3.5) 10^3/uL [place] # (Auto) 0.5 (0.0-1.0) 10^3/uL Eos # (Auto) 0.1 (0.0-0.7) 10^3/uL Baso # (Auto) 0.1 (0.0-0.1) 10^3/uL Absolute Nucleated RBC 0.00 x10^3/uL Nucleated RBC % 0.0 /100WBC Sodium 133 L (135-145) mmol/L Potassium 3.5 (3.5-4.5) mmol/L Chloride 97 L (101-111) mmol/L Carbon Dioxide 19 L (21-32) mmol/L Anion Gap 17.0 H (6-13) BUN 9 (6-20) mg/dL Creatinine 0.6 (0.6-1.3) mg/dL Estimated GFR (MDRD) 98 (>89) Glucose 77 (74-104) mg/dL POC Whole Bld Glucose 53 (70-100) mg/dL Calcium 9.4 (8.5-10.3) mg/dL Total Bilirubin 0.7 (0.2-1.0) mg/dL AST 43 H (10-42) IU/L ALT 18 (10-60) IU/L Alkaline Phosphatase 117 (42-121) IU/L Total Protein 7.3 (6.4-8.9) g/dL Albumin 4.4 (3.2-5.5) g/dL Globulin 2.9 (2.1-4.2) g/dL Albumin/Globulin Ratio 1.5 (1.0-2.2) Ethyl Alcohol 319.7 mg/dL Assessment/Plan Problem List (1) Intertrochanteric fracture of left hip: Impression: Patient presenting after mechanical ground-level fall with closed intertrochanteric left hip fracture. She is admitted, pending potential surgery. * Patient was not made n.p.o. overnight, is n.p.o. now * Pain well-managed on current therapies * Ortho to follow-up later today for potential intervention * RCRI 0. * Patient's vital signs are stable, she appears optimized for surgery. Qualifiers: Encounter type: initial encounter Fracture type: closed Fracture alignment: displaced Qualified Code(s): S72.142A - Displaced intertrochanteric fracture of left femur, initial encounter for closed fracture (2) Prolonged Q-T interval on ECG: Impression: Mildly prolonged on initial EKG, QTc 501. Notably she had a positive blood alcohol level at that time as well. I do wonder if this may be related to acute intoxication. Patient denies any chest pain, palpitations, tachycardia, or previous heart issues. She is on Toprol 25 daily * We will repeat her EKG this morning. (3) Osteoporosis: Impression: She actually just had a recent DEXA scan in January 2025. T-score of -3.3 at the left femoral neck, -3.4 at the left hip. -0.7 at the Lspine. Not yet started on treatment. * Likely should start on Bisphosphonate at discharge, will discuss with surgery * Serum calcium level WNL * Will start on calcium and vitamin D for secondary prophylaxis Qualifiers: Osteoporosis type: age-related Presence of current pathological fracture: with current pathological fracture Encounter type: initial encounter Qualified Code(s): M80.00XA - Age-related osteoporosis with current pathological fracture, unspecified site, initial encounter for fracture (4) Tobacco dependence: Impression: Patient apparently is a minimal smoker. She smokes approximately 1 cigarette/day. Did not want a nicotine patch this morning. (5) Alcohol use: Impression: Patient came in with a positive blood alcohol level up to 340. She is not exhibiting any symptoms of withdrawal at this time. She is somewhat furtive about her drinking history. She does have a documented history of cirrhosis, however her labs are inconsistent with this diagnosis. * Will monitor clinically for any symptoms of withdrawal, specifically tachycardia, agitation, tremor.
[2025-02-27] MEDS: SODIUM CHLORIDE FLUSH 0.9% 10 ML SYRINGE IVP SCH (09:30)
--- NOTE | 2025-02-27 09:41 | CT Report ---
PROCEDURE: CT Cervical Spine WO INDICATIONS: GLF, neck pain TECHNIQUE: Helical axial CT of the cervical spine was obtained without contrast and reformatted in multiple planes. COMPARISON: None. FINDINGS: Bones: No fractures or dislocations. Visualized superior ribs are intact. Degenerative disc disease and arthropathy noted throughout the spine particularly in the mid to lower cervical spine. Grade 2 anterior degenerative spondylolisthesis present at C3-4. Craniovertebral relationships normal. Soft tissues: Prevertebral soft tissues are normal in thickness. No paravertebral hematomas. No apical pneumothoraces. IMPRESSION: Degenerative disc disease and arthropathy without fracture or traumatic malalignment. Reviewed by: Chetan Krishnamurthy MD on 02/27/2025 8:37 AM [facility] Approved by: Chetan Krishnamurthy MD on 02/27/2025 8:37 AM [facility] Station ID: [id number]
--- NOTE | 2025-02-27 09:43 | CT Report ---
PROCEDURE: CT Head WO INDICATIONS: glf, head trauma TECHNIQUE: Helical axial CT of the brain was obtained without contrast and reformatted in multiple planes. COMPARISON: None FINDINGS: CSF spaces: Ventricles are appropriate in size and position. No hydrocephalus. Basal cisterns unremarkable. Brain: No midline shift. No intracranial masses or hemorrhage. Smith-white matter interface is normal. Moderate atrophy and multifocal white matter chronic ischemic change noted. Atherosclerotic vascular calcification noted in the cavernous segments of both internal carotid arteries. 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 Skull and face: Calvarium and skull base are unremarkable without suspicious lesion. Sinuses: Visualized sinuses and mastoids are clear. IMPRESSION: Atrophy and chronic ischemic change without acute hemorrhage or mass effect. 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 Note: This final report is concordant with the preliminary after-hours interpretation provided by [employer] Reviewed by: Chetan Krishnamurthy MD on 02/27/2025 8:39 AM [facility]NA Approved by: Chetan Krishnamurthy MD on 02/27/2025 8:39 AM [facility] Station ID: [id number]
[2025-02-27] MEDS: HEPARIN 5,000 UNIT/ML VIAL SUBQ SCH (09:46)
--- NOTE | 2025-02-27 09:55 | CT Report ---
PROCEDURE: CT Abdomen/Pelvis W INDICATIONS: Trauma CONTRAST: 100ml omni 300 TECHNIQUE: After the administration of intravenous contrast, a CT scan of the abdomen and pelvis was performed. Images were recorded and evaluated at appropriate window settings. Reformats: coronal and sagittal. COMPARISON: None. FINDINGS: Lower chest: Unremarkable. Liver: Hepatic parenchyma is diffusely decreased in attenuation without focal mass lesion. Lobulation of the hepatic capsule could reflect cirrhosis in the proper clinical setting. Gallbladder: Cholelithiasis Biliary tree: Unremarkable Spleen: No splenomegaly. Pancreas: No pancreatic ductal dilation. Adrenals: No adrenal nodule. Kidneys and ureters: No hydronephrosis. Left renal scarring with nonobstructive renal calculi Stomach, bowel and peritoneum: Marked circumferential wall thickening of the gastric antrum without obstruction. Additionally, bowel wall thickening and pericolonic edema noted involving the ascending colon. No pneumatosis or free air. No obstruction. Lymph nodes: No central or retroperitoneal adenopathy. Vessels: Diffuse atherosclerotic calcified and noncalcified plaque involving the aorta without aneurysm. There is atherosclerotic obstruction of the right common iliac artery with reconstitution of the common femoral artery through collaterals. Patent portal vein. PELVIS Reproductive organs: Unremarkable. Bladder: No abnormal wall thickening. Pelvic lymph nodes: No pelvic adenopathy by size criteria. Bones: Left femoral comminuted intertrochanteric fracture. Pelvic ring is intact. Other: No significant ventral or inguinal hernia. IMPRESSION: Comminuted left femoral intertrochanteric fracture. Marked circumferential wall thickening of the gastric antrum without obstruction. Differential would include gastritis and neoplasm. Consider follow- up endoscopy. Ascending colonic wall thickening and pericolonic edema may reflect infectious or inflammatory colitis. No obstruction. 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 Note: This final report is concordant with the preliminary after-hours interpretation provided by [employer] Reviewed by: Chetan Krishnamurthy MD on 02/27/2025 8:52 AM [facility] Approved by: Chetan Krishnamurthy MD on 02/27/2025 8:52 AM [facility] Station ID: [id number]
--- NOTE | 2025-02-27 10:06 | CT Report ---
PROCEDURE: CT Chest W INDICATIONS: Trauma CONTRAST: 100ml omni 300 TECHNIQUE: After the administration of intravenous contrast, a CT scan of the chest was performed. Images were recorded and evaluated at appropriate window settings. Reformats: axial MIP of the chest, coronal and sagittal. For radiation dose reduction, the following was used: automated exposure control, adjustment of mA and/or kV according to patient size. COMPARISON: None. FINDINGS: Image quality: Diagnostic. Chest wall and lower neck: No thyroid nodule which requires sonographic follow up. No breast mass. No axillary or supraclavicular adenopathy by size. Lungs and pleura: No consolidation. No pleural effusions. No pneumothorax. No suspicious pulmonary nodules which require follow up. Mediastinum: Heart size is normal. No pericardial effusion. No large vessel abnormality. No mediastinal adenopathy by size criteria. Bones: Old healed left third and fourth rib fractures Upper Abdomen: Unremarkable. IMPRESSION: No acute findings. Note: This final report is concordant with the preliminary after-hours interpretation provided by [employer] Reviewed by: Chetan Krishnamurthy MD on 02/27/2025 9:02 AM [facility] Approved by: Chetan Krishnamurthy MD on 02/27/2025 9:02 AM [facility] Station ID: [id number]
--- NOTE | 2025-02-27 10:13 | CT Report ---
PROCEDURE: CT Lumbar Spine WO INDICATIONS: fall, trauma TECHNIQUE: Helical axial CT of the lumbar spine was obtained without contrast and reformatted in multiple planes. COMPARISON: Conventional lumbar spine radiographs 01/19/2014 FINDINGS: Bones: Wedge-shaped L1 compression fracture with 20% anterior height loss is similar to prior exam. Hypertrophic facet joints and disc base narrowing particularly lower lumbar spine associated with grade 1 anterior spondylolisthesis at L4-5. No pars defect. Degenerative moderate central stenosis L4-5 Soft tissues: Dense aortic atherosclerotic vascular calcification without aneurysm IMPRESSION: No evidence of acute fracture or traumatic malalignment. Old L1 compression fracture. Degenerative disc disease and arthropathy associated with degenerative grade 1 anterior spondylolisthesis and moderate central stenosis L4-5. Note: This final report is concordant with the preliminary after-hours interpretation provided by [employer] Reviewed by: Chetan Krishnamurthy MD on 02/27/2025 9:09 AM [facility] Approved by: Chetan Krishnamurthy MD on 02/27/2025 9:09 AM [facility] Station ID: [id number]
--- NOTE | 2025-02-27 10:27 | CT Report ---
PROCEDURE: CT Thoracic Spine WO INDICATIONS: Fall, trauma TECHNIQUE: Noncontrast images acquired through the region of interest in the thoracic spine. Sagittal and coronal reformats were then constructed. For radiation dose reduction, the following was used: automated exposure control, adjustment of mA and/or kV according to patient size. COMPARISON: None. FINDINGS: Image quality: Excellent. Bones: There is normal overall bony alignment. Mild S shaped thoracolumbar scoliosis. Generalized decreased osseous mineralization. No retropulsed fracture fragment. The osseous central canal is widely patent. No suspicious sclerotic or lytic bony lesions. Central spinal canal is of normal overall caliber. T7 compression fracture with 30% anterior height loss and no retropulsed fracture fragment Soft tissues: No paravertebral masses or hematomas. Visualized posteromedial lungs appear clear. IMPRESSION: T7 compression fracture, uncertain age. No canal compromise. Osteopenia Note: This final report is concordant with the preliminary after-hours interpretation provided by [employer] Reviewed by: Chetan Krishnamurthy MD on 02/27/2025 9:23 AM [facility]NA Approved by: Chetan Krishnamurthy MD on 02/27/2025 9:23 AM [place] Station ID: [id number]
[2025-02-27 10:28] LABS: HCT - HEMATOCRIT 29.5 % (37.0-47.0); HGB - HEMOGLOBIN 8.7 g/dL (12.0-16.0); MEAN PLATELET VOLUME 10.6 fL (7.9-10.8); NRBC ABSOLUTE COUNT (AUTO) 0.00 x10^3/uL; NUCLEATED RED BLOOD CELLS AUTO 0.0 /100WBC; PLT - PLATELET COUNT 122 10^3/uL (130-450); RED CELL DISTRIBUTION WIDTH 19.7 % (12.0-15.0)
[2025-02-27 10:33] LABS: BUN - BLOOD UREA NITROGEN 8.0 mg/dL (6-20); CARBON DIOXIDE - CO2 18.0 mmol/L (21-32); CREATININE 0.6 mg/dL (0.6-1.3); GFR - MDRD 98.0 (>89)
[2025-02-27] MEDS: HYDROcod/ACETAM 5/325 MG TABLET PO PRN (12:20)
[2025-02-27 15:26] LABS: GLUCOSE, URINE (UA) NEGATIVE (NEGATIVE); KETONES,URINE (UA) NEGATIVE (NEGATIVE); OCCULT BLOOD,URINE NEGATIVE (NEGATIVE)
[2025-02-27] MEDS: HYDROcod/ACETAM 10 MG/325 MG TABLET PO PRN (21:15)
[2025-02-28 06:48] LABS: HCT - HEMATOCRIT 23.3 % (37.0-47.0); HGB - HEMOGLOBIN 7.3 g/dL (12.0-16.0); MEAN PLATELET VOLUME 10.5 fL (7.9-10.8); PLT - PLATELET COUNT 133.0 10^3/uL (130-450); RED CELL DISTRIBUTION WIDTH 19.0 % (12.0-15.0)
--- NOTE | 2025-02-28 08:08 | ANESTHESIA PROCEDURE NOTE ---
Pre-Anesthesia VS, & Labs Diagnosis Surgical Diagnosis:: left hip fracture Procedure Procedure: left hip nailing Vitals Vital Signs: Temp Pulse Resp BP Pulse Ox O2 Flow Rate 37.2 C 98 16 136/69 H 96 1 02/28/25 08:06 02/28/25 08:06 02/28/25 08:06 02/28/25 08:06 02/28/25 08:06 02/28/25 08:06 Is Patient ?: No Lab Results Current Lab Results: Laboratory Tests 02/28/25 06:15: WBC 5.2, RBC 2.48 L, Hgb 7.3 L, Hct 23.3 L, MCV 94.0, MCH 29.4, MCHC 31.3 L, RDW 19.0 H, Plt Count 133, MPV 10.5 02/27/25 10:15: WBC 6.4, RBC 2.96 L, Hgb 8.7 L, Hct 29.5 L, MCV 99.7 H, MCH 29.4, MCHC 29.5 L, RDW 19.7 H, Plt Count 122 L, MPV 10.6, Neut # (Auto) 5.0, L ymph # (Auto) 0.7 L, [place] # (Auto) 0.5, Eos # (Auto) 0.1, Baso # (Auto) 0.1, Absolute Nucleated RBC 0.00, Nucleated RBC % 0.0, Sodium 133 L, Potassium 3.5, C hloride 100 L, Carbon Dioxide 18 L, Anion Gap 15.0 H, BUN 8, Creatinine 0.6, Estimated GFR (MDRD) 98, Glucose 100, Calcium 9.1 02/27/25 08:23: POC Whole Bld Glucose 84 02/27/25 08:09: POC Whole Bld Glucose 56 02/27/25 07:47: POC Whole Bld Glucose 53 02/27/25 00:39: WBC 6.5, RBC 3.15 L, Hgb 9.1 L, Hct 30.3 L, MCV 96.2, MCH 28.9, MCHC 30.0 L, RDW 19.6 H, Plt Count 195, MPV 10.5, Neut # (Auto) 4.5, Lymph # (Auto) 1.2 L, [place] # (Auto) 0.5, Eos # (Auto) 0.1, Baso # (Auto) 0.1, Absolute Nucleated RBC 0.00, Nucleated RBC % 0.0, Sodium 133 L, Potassium 3.5, Chloride 97 L, Carbon Dioxide 19 L, Anion Gap 17.0 H, BUN 9, Creatinine 0.6, Estimated GFR (MDRD) 98, Glucose 77, Calcium 9.4, Total Bilirubin 0.7, AST 43 H, ALT 18, Alkaline Phosphatase 117, Total Protein 7.3, Albumin 4.4, Globulin 2.9, Albumin/Globulin Ratio 1.5, Ethyl Alcohol 319.7 02/28/25 06:15 02/27/25 10:15 Meds/Allgy Home Medications Ambulatory Orders Medication Instructions Recorded Confirmed omeprazole 20 mg capsule,delayed 20 mg PO DAILY 01/07/25 release blood pressure test kit-wrist 12/27/24 01/07/25 ([employer] Wrist Blood Pressure Monitor kit) metoprolol succinate 25 mg 25 mg PO QDAY high bp #90 t abs 01/07/25 01/07/25 tablet,extended release 24 hr Allergies Allergies Allergy/AdvReac Type Severity Reaction Status Date / Time NSAIDS (Non-Steroidal Allergy Severe Unknown Verified 02/27/25 00:12 Anti-Inflamma Penicillins Allergy Severe Unknown Verified 02/27/25 00:12 [facility] Active Problems All Active Problems (Updated 02/27/25 @ 11:23 by Hema Holly DO) Alcohol use (Acute) Prolonged Q-T interval on ECG (Acute) Closed left hip fracture (Acute) Intertrochanteric fracture of left hip (Acute) Hip fracture, left (Acute) Medication management (Chronic) Hepatitis C (Chronic) Tobacco dependence (Chronic) Osteoporosis (Chronic) Iron deficiency anemia (Chronic) Cigarette smoker (Chronic) Hypertension (Chronic) GERD (gastroesophageal reflux disease) (Chronic) Underweight (Chronic) Body mass index less than 19, adult (Chronic) Irregular heart beats (Chronic) Medical History Medical History (Updated 02/27/25 @ 11:23 by Hema Holly DO) Chronic kidney disease, stage 3 Adenocarcinoma, breast ER positive Status post chemoradiation Hx of chemoradiation therapy Subcutaneous nodule of abdominal wall Malignant neoplasm of pharynx, unspecified Jugular vein thrombosis Localized swelling, mass and lump, right lower limb Neck mass Duodenal ulcer hemorrhage prior to 2011 History of squamous cell carcinoma of skin Localized swelling of lower leg Unspecified cirrhosis of liver Unspecified fracture of upper end of right humerus, subsequent encounter for fracture with routine healing Esophageal varices grade 2 Abdominal hernia Duodenal ulcer Surgical History Surgical History (Updated 01/07/25 @ 16:15 by POPPY Zaragoza) Abdominal wall hernia H/O abdominal surgery hemorrhagic duodenal ulcer H/O right mastectomy Social History Social History (Updated 02/27/25 @ 05:55 by Joe Vences MD) Smoking Status: Unknown if ever smoked Number of Years Smoked: 50 How many cigarettes a day do you smoke? (20 cigarettes=1 Pk): 10 Second hand tobacco smoke exposure: No Do you dip or chew tobacco?: No Do you vape?: No Patient requests smoking cessation consult: No Initiate information on smoking cessation: No Living arrangement: At home Marital Status: Living Condition: With spouse/s.o. Support Person: Yes Physical Activity: Walking Level: Dependent Do you feel safe in your home environment?: Yes History of physical, verbal, emotional, or financial abuse?: No Frequency: Weekly Substance Use: denies use Anesthesia Exam (Expanded) Exam General: Alert, Oriented x3 and Cooperative Dental: Dentures full Upper Mouth Openin Fingerbreadth Neck Mobility: Normal Mallampati classification: II Thyromental Distance: greater than 6 cm Respiratory: Lungs clear Cardiovascular: Regular rate Exam Exam Vital Signs: Vital Signs x48h Temp Pulse Resp BP Pulse Ox O2 Flow Rate 02/28/25 08:06 37.2 C 98 16 136/69 H 96 1 02/28/25 05:03 36.7 C 96 18 143/80 H 98 1.5 02/28/25 01:24 36.8 C 84 18 148/68 H 97 1.5 Plan Problem List (1) Intertrochanteric fracture of left hip: Qualifiers: Encounter type: initial encounter Fracture alignment: displaced F racture type: closed Qualified Code(s): S72.142A - Displaced intertrochanteric fracture of left femur, initial encounter for closed fracture (2) Prolonged Q-T interval on ECG: (3) Osteoporosis: Qualifiers: Encounter type: initial encounter Osteoporosis type: age-related P resence of current pathological fracture: with current pathological fracture Q ualified Code(s): M80.00XA - Age-related osteoporosis with current pathological fracture, unspecified site, initial encounter for fracture (4) Tobacco dependence: (5) Alcohol use: Plan - Rounding team to verify images of EKG ( I am unable to open) - Recheck for QT interval Hyponatremia, mild acidosis - Mild dehydration - Patient admits alcohol use today - Continue IVF Full code Plan Anesthesia Type: General and Fascia Iliaca Block Consent for Procedure(s) Verified and Reviewed: Yes Code Status: Attempt Resuscitation ASA Classification ASA classification: 3-Severe systemic disease Is this case an emergency?: Yes
[2025-02-28] MEDS ORDERED: MIDAZOLAM 2 MG/2 ML VIAL ONE (08:39)
[2025-02-28] MEDS ORDERED: fentaNYL 100 MCG/2 ML VIAL ONE (08:39)
[2025-02-28] MEDS ORDERED: NALOXONE 0.4 MG/ML VIAL IVP PRN (08:42)
[2025-02-28] MEDS ORDERED: MORPHINE 2 MG/ML CARPUJECT IVP PRN (08:42)
[2025-02-28] MEDS ORDERED: HYDROmorphone 0.5 MG/0.5 ML SYRINGE IVP PRN (08:42)
[2025-02-28] MEDS ORDERED: ONDANSETRON 4 MG/2 ML VIAL IVP PRN (08:42)
[2025-02-28] MEDS ORDERED: fentaNYL 100 MCG/2 ML VIAL IVP PRN (08:42)
[2025-02-28] MEDS ORDERED: ePHEDrine 50 MG/ML VIAL IVP PRN (08:42)
[2025-02-28] MEDS ORDERED: METOCLOPRAMIDE 10 MG/2 ML VIAL IVP PRN (08:42)
[2025-02-28] MEDS ORDERED: ATROPINE ABBOJECT 1 MG/10 ML SYRINGE IVP PRN (08:42)
[2025-02-28] MEDS ORDERED: ROCURONIUM 50 MG/5 ML VIAL ONE (08:46)
[2025-02-28] MEDS ORDERED: PROPOFOL 200 MG/20 ML VIAL IVP ONE (08:46)
--- NOTE | 2025-02-28 08:46 | HISTORY & PHYSICAL EXAMINATION ---
Chief Complaint Chief Complaint Chief Complaint: Left hip pain History of Present Illness History of Present Illness HPI Comment/Other: The patient fell onto her left hip after tripping on a rug. She was brought to the emergency room and she was diagnosed with a left hip intertrochanteric fracture. I have been consulted regarding management of the fracture. The patient states she does not have any other pain or any other issues. Colonoscopy Questionnaire In the last 30 days have you experienced these symptoms? PFSH Active Problems All Active Problems (Updated 02/27/25 @ 11:23 by Hema Holly DO) Alcohol use (Acute) Prolonged Q-T interval on ECG (Acute) Closed left hip fracture (Acute) Intertrochanteric fracture of left hip (Acute) Hip fracture, left (Acute) Medication management (Chronic) Hepatitis C (Chronic) Tobacco dependence (Chronic) Osteoporosis (Chronic) Iron deficiency anemia (Chronic) Cigarette smoker (Chronic) Hypertension (Chronic) GERD (gastroesophageal reflux disease) (Chronic) Underweight (Chronic) Body mass index less than 19, adult (Chronic) Irregular heart beats (Chronic) Medical History Medical History (Updated 02/27/25 @ 11:23 by Hema Holly DO) Chronic kidney disease, stage 3 Adenocarcinoma, breast ER positive Status post chemoradiation Hx of chemoradiation therapy Subcutaneous nodule of abdominal wall Malignant neoplasm of pharynx, unspecified Jugular vein thrombosis Localized swelling, mass and lump, right lower limb Neck mass Duodenal ulcer hemorrhage prior to 2011 History of squamous cell carcinoma of skin Localized swelling of lower leg Unspecified cirrhosis of liver Unspecified fracture of upper end of right humerus, subsequent encounter for fracture with routine healing Esophageal varices grade 2 Abdominal hernia Duodenal ulcer Surgical History Surgical History (Updated 01/07/25 @ 16:15 by POPPY Zaragoza) Abdominal wall hernia H/O abdominal surgery hemorrhagic duodenal ulcer H/O right mastectomy Social History Social History (Updated 02/27/25 @ 05:55 by Joe Vences MD) Smoking Status: Unknown if ever smoked Number of Years Smoked: 50 How many cigarettes a day do you smoke? (20 cigarettes=1 Pk): 10 Second hand tobacco smoke exposure: No Do you dip or chew tobacco?: No Do you vape?: No Patient requests smoking cessation consult: No Initiate information on smoking cessation: No Living arrangement: At home Marital Status: Living Condition: With spouse/s.o. Support Person: Yes Physical Activity: Walking Level: Dependent Do you feel safe in your home environment?: Yes History of physical, verbal, emotional, or financial abuse?: No Frequency: Weekly Substance Use: denies use Meds/Allgy Home Medications Ambulatory Orders Medication Instructions Recorded Confirmed omeprazole 20 mg capsule,delayed 20 mg PO DAILY 01/07/25 release blood pressure test kit-wrist 12/27/24 01/07/25 (Procare Wrist Blood Pressure Monitor kit) metoprolol succinate 25 mg 25 mg PO QDAY high bp #90 t abs 01/07/25 01/07/25 tablet,extended release 24 hr Allergies Allergies Allergy/AdvReac Type Severity Reaction Status Date / Time NSAIDS (Non-Steroidal Allergy Severe Unknown Verified 02/27/25 00:12 Anti-Inflamma Penicillins Allergy Severe Unknown Verified 02/27/25 00:12 Results Lab Results 02/28/25 06:15 02/27/25 10:15 Other Lab Results: Lab Results x24hrs 02/28/25 02/27/25 02/27/25 Range/Units 06:15 15:15 10:15 WBC 5.2 6.4 (4.8-10.8) x10^3/uL RBC 2.48 L 2.96 L (4.20-5.40) 10^6/uL Hgb 7.3 L 8.7 L (12.0-16.0) g/dL Hct 23.3 L 29.5 L (37.0-47.0) % MCV 94.0 99.7 H (81.0-99.0) fL MCH 29.4 29.4 (27.0-31.0) pg MCHC 31.3 L 29.5 L (32.0-36.0) g/dL RDW 19.0 H 19.7 H (12.0-15.0) % Plt Count 133 122 L (130-450) 10^3/uL MPV 10.5 10.6 (7.9-10.8) fL Neut # (Auto) 5.0 (1.5-6.6) 10^3/uL Lymph # (Auto) 0.7 L (1.5-3.5) 10^3/uL Harlan # (Auto) 0.5 (0.0-1.0) 10^3/uL Eos # (Auto) 0.1 (0.0-0.7) 10^3/uL Baso # (Auto) 0.1 (0.0-0.1) 10^3/uL Absolute Nucleated RBC 0.00 x10^3/uL Nucleated RBC % 0.0 /100WBC Sodium 133 L (135-145) mmol/L Potassium 3.5 (3.5-4.5) mmol/L Chloride 100 L (101-111) mmol/L Carbon Dioxide 18 L (21-32) mmol/L Anion Gap 15.0 H (6-13) BUN 8 (6-20) mg/dL Creatinine 0.6 (0.6-1.3) mg/dL Estimated GFR (MDRD) 98 (>89) Glucose 100 (74-104) mg/dL Calcium 9.1 (8.5-10.3) mg/dL Urine Color STRAW Urine Clarity CLEAR (CLEAR) Urine pH 6.5 (5.0-7.5) PH Ur Specific [place] 1.005 (1.002-1.030) Urine Protein NEGATIVE (NEGATIVE) mg/dL Urine Glucose (UA) NEGATIVE (NEGATIVE) mg/dL Urine Ketones NEGATIVE (NEGATIVE) mg/dL Urine Occult Blood NEGATIVE (NEGATIVE) Urine Nitrite NEGATIVE (NEGATIVE) Urine Bilirubin NEGATIVE (NEGATIVE) Urine Urobilinogen 0.2 (NORMAL) (NORMAL) E.U./dL Ur Leukocyte Esterase NEGATIVE (NEGATIVE) Ur Microscopic Review NOT INDICATED Urine Culture Comments NOT INDICATED Exam Exam Vital Signs: Vital Signs x48h Temp Pulse Resp BP Pulse Ox O2 Flow Rate 02/28/25 08:06 37.2 C 98 16 136/69 H 96 1 02/28/25 05:03 36.7 C 96 18 143/80 H 98 1.5 02/28/25 01:24 36.8 C 84 18 148/68 H 97 1.5 Physical exam reveals the left hip to be shortened externally rotated she has good distal pulses good sensation. Unable to straight leg raise. Impression/Plan Problem List (1) Intertrochanteric fracture of left hip: Plan: The patient does have a left hip intertrochanteric fracture and we have ordered the equipment to be here and the surgery will be performed on Saturday morning at 9 AM. The patient understands all the risks and benefits of the surgery and did sign a consent. Qualifiers: Encounter type: initial encounter Fracture alignment: displaced F racture type: closed Qualified Code(s): S72.142A - Displaced intertrochanteric fracture of left femur, initial encounter for closed fracture (2) Prolonged Q-T interval on ECG: (3) Osteoporosis: Qualifiers: Osteoporosis type: age-related Presence of current pathological fracture: with current pathological fracture Encounter type: initial encounter Qualified Code(s): M80.00XA - Age-related osteoporosis with current pathological fracture, unspecified site, initial encounter for fracture (4) Tobacco dependence: (5) Alcohol use:
[2025-02-28] MEDS ORDERED: BUPIVACAINE 0.25% PF 30 ML VIAL ONE (08:53)
--- NOTE | 2025-02-28 08:54 | PROVIDER PROGRESS NOTE ---
Subjective Prog Note Date Prog Note Date: 02/28/25 Prog Note Time: 11:17 Subjective Pt reports feeling: No change Subjective: Patient arrived uneventful night. She is having some pain around her operative site this morning, but this improves after her surgery. She was slightly tremulous this morning, but that improved after she got out of surgery. Suspect this may have been more related to pain. There is initial concern that she may be going through some alcohol withdrawal, however we clarified with her present and she does not drink daily. They did have some cocktails prior to her index event this hospitalization, but they typically drink twice a week. Patient denies any fevers or chills, chest pain, dyspnea, abdominal pain, nausea or vomiting. She is to work with PT later today. Current Medications Current Medications Current Medications: Current Medications Generic Name Dose Route Start Last Admin Trade Name Freq PRN Reason Stop Dose Admin Acetaminophen 650 mg 02/27/25 06:09 Acetaminophen 325 Mg Tablet PO Q4HR PRN Pain 1 to 4, or Fever Hydrocodone Bitart/Acetaminophen 1 tab 02/27/25 06:09 02/27/25 16:49 Hydrocod/Acetam 5/325 Mg Tablet PO 1 tab Q4HR PRN Administration Pain 5 to 7 Hydrocodone Bitart/Acetaminophen 1 tab 02/27/25 06:09 02/27/25 21:15 Hydrocod/Acetam 10 Mg/325 Mg Tablet PO 1 tab Q4HR PRN Administration Pain 8 to 10 Atropine Sulfate 0.5 mg 02/28/25 08:42 Atropine Abboject 1 Mg/10 Ml Syringe IVP 03/01/25 08:42 Q5M PRN Bradycardia Calcium Carbonate/Glycine 500 mg 02/28/25 08:00 Calcium Carbonate Chew 500 Mg Tablet PO QDBREAKFAST GONZALES Cholecalciferol 50 mcg 02/28/25 09:00 Cholecalciferol 25 Mcg Tablet PO DAILY GONZALES Ephedrine Sulfate 10 mg 02/28/25 08:42 Ephedrine 50 Mg/Ml Vial IVP 03/01/25 08:42 Q5M PRN HYPOTENSION Fentanyl 25 - 50 mcg 02/28/25 08:42 Fentanyl 100 Mcg/2 Ml Vial IVP 03/01/25 08:42 Q5M PRN BREAKTHROUGH PAIN (2nd Choice) Heparin Sodium (Porcine) 5,000 unit 02/27/25 09:00 02/27/25 21:16 Heparin 5,000 Unit/Ml Vial SUBQ 5,000 unit BID GONZALES Administration Hydromorphone HCl 0.2 - 0.6 mg 02/28/25 08:42 Hydromorphone 0.5 Mg/0.5 Ml Syringe IVP 03/01/25 08:42 Q5M PRN PAIN (First Choice) Lactated Ringer's 1,000 mls @ 100 mls/hr 02/28/25 09:00 Lr IV 02/28/25 18:59 .Q10H GONZALES Metoclopramide HCl 10 mg 02/28/25 08:42 Metoclopramide 10 Mg/2 Ml Vial IVP Q6HR PRN N/V not relieved by Zofran Morphine Sulfate 2 mg 02/27/25 06:09 02/28/25 05:17 Morphine 2 Mg/Ml Carpuject IVP 2 mg Q2HR PRN Administration Pain 8 to 10 Morphine Sulfate 2 - 4 mg 02/28/25 08:42 Morphine 2 Mg/Ml Carpuject IVP 03/01/25 08:42 Q5M PRN PAIN (3rd Choice) Naloxone HCl 0.1 mg 02/28/25 08:42 Naloxone 0.4 Mg/Ml Vial IVP 03/01/25 08:42 Q2M PRN RESP RATE <8 Ondansetron HCl 4 mg 02/28/25 08:42 Ondansetron 4 Mg/2 Ml Vial IVP 03/01/25 08:42 ONCE PRN N/V (First Choice) Sodium Chloride 10 ml 02/27/25 06:09 Sodium Chloride Flush 0.9% 10 Ml Syringe IVP PRN PRN NEEDED PER PROVIDER ORDERS Sodium Chloride 10 ml 02/27/25 09:00 02/28/25 00:55 Sodium Chloride Flush 0.9% 10 Ml Syringe IVP 10 ml 0100,0900,1700 GONZALES Administration Objective Vital Signs/Intake & Output Reviewed Vital Signs: Yes Vital Signs: Vital Signs x48h Temp Pulse Resp BP Pulse Ox O2 Flow Rate 02/28/25 08:06 37.2 C 98 16 136/69 H 96 1 02/28/25 05:03 36.7 C 96 18 143/80 H 98 1.5 02/28/25 01:24 36.8 C 84 18 148/68 H 97 1.5 Intake & Output: Intake & Output 02/25/25 02/26/25 02/27/25 02/28/25 23:59 23:59 23:59 23:59 Intake Total 825 / 825 Output Total 1650 / 1650 300 / 300 Balance -825 / -825 -300 / -300 Weight (kg) 44.7 kg Objective Comments/Other: GEN: No acute distress HEENT: NC/AT, normal appearance of external ears and nose. Hearing baseline. Cardiac: Regular rate and rhythm, no murmurs. Pulm: Lungs CTA bilaterally, no cough, no wheezes Abdomen: Soft, nontender, nondistended. No rebound or guarding Extremities: Expected postoperative findings left lower extremity. Dressing CDI. Neuro: Face symmetric, CN II through XII intact grossly. No focal neurologic deficits. Mild fine resting tremor. No asterixis. Psych: Mood euthymic with congruent affect. Lab Results 02/28/25 06:15 02/27/25 10:15 Other Labs: Lab Results x24hrs 02/28/25 02/27/25 02/27/25 Range/Units 06:15 15:15 10:15 WBC 5.2 6.4 (4.8-10.8) x10^3/uL RBC 2.48 L 2.96 L (4.20-5.40) 10^6/uL Hgb 7.3 L 8.7 L (12.0-16.0) g/dL Hct 23.3 L 29.5 L (37.0-47.0) % MCV 94.0 99.7 H (81.0-99.0) fL MCH 29.4 29.4 (27.0-31.0) pg MCHC 31.3 L 29.5 L (32.0-36.0) g/dL RDW 19.0 H 19.7 H (12.0-15.0) % Plt Count 133 122 L (130-450) 10^3/uL MPV 10.5 10.6 (7.9-10.8) fL Neut # (Auto) 5.0 (1.5-6.6) 10^3/uL Lymph # (Auto) 0.7 L (1.5-3.5) 10^3/uL [place]ane # (Auto) 0.5 (0.0-1.0) 10^3/uL Eos # (Auto) 0.1 (0.0-0.7) 10^3/uL Baso # (Auto) 0.1 (0.0-0.1) 10^3/uL Absolute Nucleated RBC 0.00 x10^3/uL Nucleated RBC % 0.0 /100WBC Sodium 133 L (135-145) mmol/L Potassium 3.5 (3.5-4.5) mmol/L Chloride 100 L (101-111) mmol/L Carbon Dioxide 18 L (21-32) mmol/L Anion Gap 15.0 H (6-13) BUN 8 (6-20) mg/dL Creatinine 0.6 (0.6-1.3) mg/dL Estimated GFR (MDRD) 98 (>89) Glucose 100 (74-104) mg/dL Calcium 9.1 (8.5-10.3) mg/dL Urine Color STRAW Urine Clarity CLEAR (CLEAR) Urine pH 6.5 (5.0-7.5) PH Ur Specific [place] 1.005 (1.002-1.030) Urine Protein NEGATIVE (NEGATIVE) mg/dL Urine Glucose (UA) NEGATIVE (NEGATIVE) mg/dL Urine Ketones NEGATIVE (NEGATIVE) mg/dL Urine Occult Blood NEGATIVE (NEGATIVE) Urine Nitrite NEGATIVE (NEGATIVE) Urine Bilirubin NEGATIVE (NEGATIVE) Urine Urobilinogen 0.2 (NORMAL) (NORMAL) E.U./dL Ur Leukocyte Esterase NEGATIVE (NEGATIVE) Ur Microscopic Review NOT INDICATED Urine Culture Comments NOT INDICATED Assessment/Plan Problem List (1) Intertrochanteric fracture of left hip: Impression: Improved Postoperative day 0. Status post operative repair Patient is healing appropriately. Pain is reasonably managed. * PT to evaluate after surgery * Suspect patient will discharge to SNF. Discussed with and patient today Qualifiers: Encounter type: initial encounter Fracture alignment: displaced F racture type: closed Qualified Code(s): S72.142A - Displaced intertrochanteric fracture of left femur, initial encounter for closed fracture (2) Osteoporosis: Impression: Inform the patient on 02/27 one of her prior DEXA scan results. She has osteoporosis now presenting with pathologic fracture. She actually just had a recent DEXA scan in January 2025. T-score of -3.3 at the left femoral neck, -3.4 at the left hip. -0.7 at the [place]. Not yet started on treatment. * Likely should start on Bisphosphonate at discharge, will discuss with surgery * Serum calcium level WNL * Will start on calcium and vitamin D for secondary prophylaxis Qualifiers: Encounter type: initial encounter Osteoporosis type: age-related P resence of current pathological fracture: with current pathological fracture Q ualified Code(s): M80.00XA - Age-related osteoporosis with current pathological fracture, unspecified site, initial encounter for fracture (3) Prolonged Q-T interval on ECG: Impression: Resolved on repeat EKG. May have been related to acute alcohol intoxication. Mildly prolonged on initial EKG, QTc 501. (4) Tobacco dependence: Impression: Patient apparently is a minimal smoker. She smokes approximately 1 cigarette/day. Did not request for a nicotine patch. (5) Alcohol use: Impression: Motivational interview with patient and her on 02/28. They are agreeable that they should cut back on the number of cocktails I have. But it does not sound like they drink more than 2 days a week. Does some which she is drinking over 7 standard drinks in a week. Advised on the risks of further falls and other health risks. Family is accepting of this. Patient came in with a positive blood alcohol level up to 340. Given her drinking history, I think that it is unlikely that she will go into significant withdrawal here, but we will continue to monitor.
[2025-02-28] MEDS ORDERED: ePHEDrine 50 MG/ML VIAL IVP ONE (09:26)
[2025-02-28] MEDS ORDERED: PHENYLEPHRINE HCL 0.5 MG/5 ML AMPULE ONE (09:33)
[2025-02-28] MEDS ORDERED: ROPIVACAINE 0.5% PF 20 ML VIAL ONE (09:46)
[2025-02-28] MEDS ORDERED: LIDOCAINE-PF 2% 10 ML AMP SUBQ ONE (09:46)
[2025-02-28] MEDS ORDERED: SUGAMMADEX 200 MG/2 ML VIAL IVP ONE (10:02)
--- NOTE | 2025-02-28 10:11 | OPERATIVE REPORT ---
Operative Report General Admit Date: 02/27/25 Procedure Data: Operation Date: 02/28/25 09:00 Proposed Procedures p Hip Nailing(Left) - Colin Syed DO Actual Procedures p Hip Nailing(Left) - Colin Syed DO Anesthesia Type General Case Staff Anesthesia Provider: Yumiko Rodriges Case Times Procedure Start: 02/28/25 09:38 Procedure End: 02/28/25 10:01 Time out: 02/28/25 09:36 Implants INTERTAN 10S [id number] 125D LT TRIGEN L-P SCREW [id number] TRIGEN LAG SCRW 90/95MM Pre-Op Diagnosis: Left hip intertrochanteric fracture Post Op Diagnosis: Left hip intertrochanteric fracture Procedure Note Estimated Blood Loss (ml): 100 Indications: Left hip intertrochanteric fracture Complications: None Other Other Information/Narrative: The patient was taken to the operative suite and after undergoing a general anesthetic she was placed onto the fracture table with the left hip exposed. The left hip was prepped and draped in the usual sterile fashion. We made an incision from the tip of the toe proximally about 5 cm and dissection was taken down to the tensor fascia tyler and this was incised longitudinally we then could palpate the greater trochanter and we inserted the guidepin and then we overreamed for our lora and then we put in a 10 mm lora. We then inserted the guidepin up into the femoral head and confirming this on AP and lateral physician guided arthroscopy we inserted the lag screw 95 mm up into the femoral head and then the compression screw to follow. We then turned to the distal screw and we put a distal locking screw size 30 mm to lock the lora into place. At that time the wounds were thoroughly irrigated the deep tissue was closed w ith 0 Vicryl the subcu with 2-0 Vicryl the skin was closed with anival and a sterile dressing was applied.
[2025-02-28] MEDS: CHOLECALCIFEROL 25 MCG TABLET PO SCH (11:20)
[2025-02-28] MEDS ORDERED: SODIUM CHLORIDE FLUSH 0.9% 10 ML SYRINGE IVP PRN (11:59)
[2025-02-28] MEDS: CALCIUM CARBONATE CHEW 500 MG TABLET PO SCH (12:15)
[2025-02-28] MEDS: LACTATED RINGERS 1,000 ML IV SCH (12:28)
--- NOTE | 2025-02-28 13:25 | PHARMACY PROGRESS NOTE ---
Best Possible Medication History Admit Date and Time: 02/27/25 0415 Home Medications Medication Instructions Recorded Confirmed Type omeprazole 20 mg capsule,delayed 20 mg PO DAILY 02/28/25 History release blood pressure test kit-wrist 12/27/24 01/07/25 Histo ry (Procare Wrist Blood Pressure Monitor kit) cholecalciferol (vitamin D3) 25 25 mcg PO DAILY 02/28/25 History mcg (1,000 unit) tablet (Vitamin D3) metoprolol succinate 25 mg 25 mg PO DAILY high bp 02/0902/28/25 History tablet,extended release 24 hr Processed by: Pharmacy Medications reviewed in ED?: No Medication History completed: Yes Patient Interview: Completed Secondary Source(s): Insurance records [facility] Statement: As the person ultimately responsible for medication therapy, providers are able to order a medication from an existing home medication list in [facility] via the "Reconcile Routine" prior to Confirmation of that medication by client application support engineer. Such practice is discouraged except when the physician, in their clinical judgment, deems that a medical need exists for a medication without regard to previous use.
--- NOTE | 2025-02-28 13:43 | ANESTHESIA POST OP EVALUATION ---
Anesthesia Post Eval Post Anesthesia Eval Vitals: Last Vital Signs Temp 36.5 C 02/28/25 12:55 Pulse 90 02/28/25 12:55 Resp 16 02/28/25 12:55 BP 117/63 02/28/25 12:55 Pulse Ox 97 02/28/25 12:55 O2 Flow Rate 1 02/28/25 12:55 CV Function Including HR & BP: Stable Pain Control: Satisfactory Nausea & Vomiting: Negative Mental Status: Baseline Respiratory Status: Airway Patent Hydration Status: Satisfactory Anesthesia Complications: None
--- NOTE | 2025-02-28 16:15 | XRAY Report ---
PROCEDURE: FL OR C-Arm Procedure INDICATIONS: FX FLUORO TIME: 0.5 MIN TECHNIQUE: Intraoperative fluoroscopic films obtained for a medical procedure. COMPARISON: 02/27/2025 FINDINGS/IMPRESSION: Intraoperative fluoroscopic films obtained for left hip fracture fixation. Please see operative note. Reviewed by: Júnior Barron MD on 02/28/2025 4:11 PM PDT Approved by: Júnior Barron MD on 02/28/2025 4:11 PM PDT Station ID: [id number]
[2025-02-28] MEDS: SODIUM CHLORIDE FLUSH 0.9% 10 ML SYRINGE IVP SCH (17:09)
--- NOTE | 2025-03-01 08:44 | PROVIDER PROGRESS NOTE ---
Subjective Prog Note Date Prog Note Date: 03/01/25 Prog Note Time: 08:42 Subjective Pt reports feeling: Improved Subjective: Patient is feeling well this morning. She had some pain overnight that was treated with IV narcotics. Her pain was precipitated by her having a myoclonic jerk overnight that had some acute pain. Otherwise her vital signs are stable. No other concerns this morning. She is feeling well. She is eager to work with PT today. Her is good to be here at 9, and she hopes that PT can work with her while her is there. Current Medications Current Medications Current Medications: Current Medications Generic Name Dose Route Start Last Admin Trade Name Freq PRN Reason Stop Dose Admin Acetaminophen 650 mg 02/27/25 06:09 Acetaminophen 325 Mg Tablet PO Q4HR PRN Pain 1 to 4, or Fever Hydrocodone Bitart/Acetaminophen 1 tab 02/27/25 06:09 02/27/25 16:49 Hydrocod/Acetam 5/325 Mg Tablet PO 1 tab Q4HR PRN Administration Pain 5 to 7 Hydrocodone Bitart/Acetaminophen 1 tab 02/27/25 06:09 02/27/25 21:15 Hydrocod/Acetam 10 Mg/325 Mg Tablet PO 1 tab Q4HR PRN Administration Pain 8 to 10 Calcium Carbonate/Glycine 500 mg 02/28/25 08:00 02/28/25 12:15 Calcium Carbonate Chew 500 Mg Tablet PO Not Given QDBREAKFAST GONZALES Cholecalciferol 50 mcg 02/28/25 09:00 02/28/25 11:20 Cholecalciferol 25 Mcg Tablet PO 50 mcg DAILY GONZALES Administration Heparin Sodium (Porcine) 5,000 unit 02/27/25 09:00 02/28/25 21:15 Heparin 5,000 Unit/Ml Vial SUBQ 5,000 unit BID GONZALES Administration Morphine Sulfate 2 mg 02/27/25 06:09 03/01/25 03:36 Morphine 2 Mg/Ml Carpuject IVP 2 mg Q2HR PRN Administration Pain 8 to 10 Sodium Chloride 10 ml 02/27/25 06:09 Sodium Chloride Flush 0.9% 10 Ml Syringe IVP PRN PRN NEEDED PER PROVIDER ORDERS Sodium Chloride 10 ml 02/27/25 09:00 03/01/25 01:23 Sodium Chloride Flush 0.9% 10 Ml Syringe IVP 10 ml 0100,0900,1700 GONZALES Administration Sodium Chloride 10 ml 02/28/25 11:59 Sodium Chloride Flush 0.9% 10 Ml Syringe IVP PRN PRN NEEDED PER PROVIDER ORDERS Sodium Chloride 10 ml 02/28/25 17:00 03/01/25 01:23 Sodium Chloride Flush 0.9% 10 Ml Syringe IVP 10 ml 0100,0900,1700 GONZALES Administration Objective Vital Signs/Intake & Output Reviewed Vital Signs: Yes Vital Signs: Vital Signs x48h Temp Pulse Resp BP Pulse Ox O2 Flow Rate 03/01/25 08:23 37.2 C 100 20 100/64 96 1 03/01/25 08:22 37.2 C 100 20 100/64 96 1 03/01/25 04:25 36.7 C 80 18 120/52 L 95 1 03/01/25 04:21 36.7 C 80 18 120/52 L 95 1 Intake & Output: Intake & Output 02/26/25 02/27/25 02/28/25 03/01/25 23:59 23:59 23:59 23:59 Intake Total 825 / 825 1150 / 1150 270 / 270 Output Total 1650 / 1650 860 / 860 300 / 300 Balance -825 / -825 290 / 290 -30 / -30 Weight (kg) 44.7 kg Objective Comments/Other: GEN: No acute distress HEENT: NC/AT, normal appearance of external ears and nose. Hearing baseline. Cardiac: Regular rate and rhythm, no murmurs. Pulm: Lungs CTA bilaterally, no cough, no wheezes Abdomen: Soft, nontender, nondistended. No rebound or guarding Extremities: Expected postoperative findings left lower extremity. Dressing is fairly saturated, but otherwise intact. No surrounding erythema or tenderness. Neuro: Face symmetric, CN II through XII intact grossly. No focal neurologic deficits. Mild fine resting tremor. No asterixis. Psych: Mood euthymic with congruent affect. Lab Results 02/28/25 06:15 02/27/25 10:15 Other Labs: Lab Results x24hrs 02/28/25 02/27/25 02/27/25 Range/Units 06:15 15:15 10:15 WBC 5.2 6.4 (4.8-10.8) x10^3/uL RBC 2.48 L 2.96 L (4.20-5.40) 10^6/uL Hgb 7.3 L 8.7 L (12.0-16.0) g/dL Hct 23.3 L 29.5 L (37.0-47.0) % MCV 94.0 99.7 H (81.0-99.0) fL MCH 29.4 29.4 (27.0-31.0) pg MCHC 31.3 L 29.5 L (32.0-36.0) g/dL RDW 19.0 H 19.7 H (12.0-15.0) % Plt Count 133 122 L (130-450) 10^3/uL MPV 10.5 10.6 (7.9-10.8) fL Neut # (Auto) 5.0 (1.5-6.6) 10^3/uL Lymph # (Auto) 0.7 L (1.5-3.5) 10^3/uL [place] # (Auto) 0.5 (0.0-1.0) 10^3/uL Eos # (Auto) 0.1 (0.0-0.7) 10^3/uL Baso # (Auto) 0.1 (0.0-0.1) 10^3/uL Absolute Nucleated RBC 0.00 x10^3/uL Nucleated RBC % 0.0 /100WBC Sodium 133 L (135-145) mmol/L Potassium 3.5 (3.5-4.5) mmol/L Chloride 100 L (101-111) mmol/L Carbon Dioxide 18 L (21-32) mmol/L Anion Gap 15.0 H (6-13) BUN 8 (6-20) mg/dL Creatinine 0.6 (0.6-1.3) mg/dL Estimated GFR (MDRD) 98 (>89) Glucose 100 (74-104) mg/dL Calcium 9.1 (8.5-10.3) mg/dL Urine Color STRAW Urine Clarity CLEAR (CLEAR) Urine pH 6.5 (5.0-7.5) PH Ur Specific [place] 1.005 (1.002-1.030) Urine Protein NEGATIVE (NEGATIVE) mg/dL Urine Glucose (UA) NEGATIVE (NEGATIVE) mg/dL Urine Ketones NEGATIVE (NEGATIVE) mg/dL Urine Occult Blood NEGATIVE (NEGATIVE) Urine Nitrite NEGATIVE (NEGATIVE) Urine Bilirubin NEGATIVE (NEGATIVE) Urine Urobilinogen 0.2 (NORMAL) (NORMAL) E.U./dL Ur Leukocyte Esterase NEGATIVE (NEGATIVE) Ur Microscopic Review NOT INDICATED Urine Culture Comments NOT INDICATED Assessment/Plan Problem List (1) Intertrochanteric fracture of left hip: Impression: Improved Postoperative day 1. Status post operative repair Patient is healing appropriately. Pain is reasonably managed. * PT to evaluate after surgery, Hopefully today * Suspect patient will discharge to SNF, Patient and were agreeable to this on 02/28 * She is getting heparin for VTE prophylaxis, I am adding ASA 650 mg twice daily as requested by Dr. Syed * Starting on PPI as well given history of GERD and alcohol use Qualifiers: Encounter type: initial encounter Fracture alignment: displaced F racture type: closed Qualified Code(s): S72.142A - Displaced intertrochanteric fracture of left femur, initial encounter for closed fracture (2) Osteoporosis: Impression: Inform the patient on 02/27 one of her prior DEXA scan results. She has osteoporosis now presenting with pathologic fracture. She actually just had a recent DEXA scan in January 2025. T-score of -3.3 at the left femoral neck, -3.4 at the left hip. -0.7 at the Lspine. Not yet started on treatment. * Likely should start on Bisphosphonate at discharge, will discuss with surgery * Serum calcium level WNL * Follow-up pending vitamin D level * Will start on calcium and vitamin D for secondary prophylaxis Qualifiers: Osteoporosis type: age-related Presence of current pathological fracture: with current pathological fracture Encounter type: initial encounter Qualified Code(s): M80.00XA - Age-related osteoporosis with current pathological fracture, unspecified site, initial encounter for fracture (3) Prolonged Q-T interval on ECG: Impression: Resolved on repeat EKG. May have been related to acute alcohol intoxication. Mildly prolonged on initial EKG, QTc 501. (4) Tobacco dependence: Impression: Patient apparently is a minimal smoker. She smokes approximately 1 cigarette/day. Did not request a nicotine patch. (5) Alcohol use: Impression: She has not exhibited any significant signs of alcohol withdrawal. Motivational interview with patient and her on 02/28. They are agreeable that they should cut back on the number of cocktails I have. But it does not sound like they drink more than 2 days a week. Does some which she is drinking over 7 standard drinks in a week. Advised on the risks of further falls and other health risks. Family is accepting of this. Patient came in with a positive blood alcohol level up to 340. Given her drinking history, I think that it is unlikely that she will go into significant withdrawal here, but we will continue to monitor. (6) Hypertension: Impression: Per history. She has hypertension. She is prescribed metoprolol succinate 25 mg p.o. daily. I have held this medication during this hospitalization as her blood pressures been reasonably controlled. She may have had some rebound tachycardia in the setting of holding her beta-siena. I likely will not restart her beta-siena at discharge given her blood pressure reasonably controlled off of it. As above, would recommend against heavy drinking as this may exacerbate her hypertension. Qualifiers: Hypertension type: other secondary hypertension Qualified Code(s): I 15.8 - Other secondary hypertension
[2025-03-01] MEDS: ASPIRIN EC 325 MG TABLET PO SCH (09:18)
[2025-03-01] MEDS: PANTOPRAZOLE 40 MG TABLET PO SCH (09:25)
[2025-03-01 14:32] LABS: MEAN PLATELET VOLUME 10.3 fL (7.9-10.8); PLT - PLATELET COUNT 141.0 10^3/uL (130-450); RED CELL DISTRIBUTION WIDTH 20.0 % (12.0-15.0)
[2025-03-01 14:35] LABS: HCT - HEMATOCRIT 19.5 % (37.0-47.0); HGB - HEMOGLOBIN 6.0 g/dL (12.0-16.0)
[2025-03-01 14:42] LABS: % IRON SATURATION 8.0 % (20-50); BUN - BLOOD UREA NITROGEN 7.0 mg/dL (6-20); CARBON DIOXIDE - CO2 27.0 mmol/L (21-32); CREATININE 0.8 mg/dL (0.6-1.3); GFR - MDRD 70.0 (>89)
[2025-03-02 07:28] LABS: HCT - HEMATOCRIT 24.8 % (37.0-47.0); HGB - HEMOGLOBIN 8.0 g/dL (12.0-16.0); MEAN PLATELET VOLUME 11.1 fL (7.9-10.8); NRBC ABSOLUTE COUNT (AUTO) 0.00 x10^3/uL; NUCLEATED RED BLOOD CELLS AUTO 0.0 /100WBC; PLT - PLATELET COUNT 123 10^3/uL (130-450); RED CELL DISTRIBUTION WIDTH 18.5 % (12.0-15.0)
--- NOTE | 2025-03-02 09:51 | PROVIDER PROGRESS NOTE ---
Subjective Subjective Subjective: Patient is doing well this morning. She no longer feels dizzy or lightheaded when she is getting up. She does state that she has a long history of iron deficiency anemia. She has not been taking iron supplements as it does not sit well with her, but she does receive occasional IV iron infusions. Other than that, she is eager to work with PT. She will be choiced for SNF today. And is in agreement with the plan. Diet: Regular DVT: Aspirin 650 mg BID - per orthopedic reccs Dispo: SNF on discharge, being choiced today Code: Full Code Current Medications Current Medications Current Medications: Current Medications Generic Name Dose Route Start Last Admin Trade Name Freq PRN Reason Stop Dose Admin Acetaminophen 650 mg 02/27/25 06:09 Acetaminophen 325 Mg Tablet PO Q4HR PRN Pain 1 to 4, or Fever Hydrocodone Bitart/Acetaminophen 1 tab 02/27/25 06:09 03/01/25 15:49 Hydrocod/Acetam 5/325 Mg Tablet PO 1 tab Q4HR PRN Administration Pain 5 to 7 Hydrocodone Bitart/Acetaminophen 1 tab 02/27/25 06:09 03/02/25 03:00 Hydrocod/Acetam 10 Mg/325 Mg Tablet PO 1 tab Q4HR PRN Administration Pain 8 to 10 Aspirin 650 mg 03/01/25 09:00 03/02/25 08:27 Aspirin Ec 325 Mg Tablet PO 650 mg BID GONZALES Administration Calcium Carbonate/Glycine 500 mg 02/28/25 08:00 03/02/25 08:27 Calcium Carbonate Chew 500 Mg Tablet PO Not Given QDBREAKFAST GONZALES Cholecalciferol 50 mcg 02/28/25 09:00 03/02/25 08:27 Cholecalciferol 25 Mcg Tablet PO 50 mcg DAILY GONZALES Administration Heparin Sodium (Porcine) 5,000 unit 02/27/25 09:00 03/02/25 08:26 Heparin 5,000 Unit/Ml Vial SUBQ 5,000 unit BID GONZALES Administration Pantoprazole Sodium 40 mg 03/01/25 09:00 03/02/25 06:00 Pantoprazole 40 Mg Tablet PO 40 mg QDAC GONZALES Administration Sodium Chloride 10 ml 02/27/25 06:09 Sodium Chloride Flush 0.9% 10 Ml Syringe IVP PRN PRN NEEDED PER PROVIDER ORDERS Sodium Chloride 10 ml 02/27/25 09:00 03/02/25 00:40 Sodium Chloride Flush 0.9% 10 Ml Syringe IVP 10 ml 0100,0900,1700 GONZALES Administration Sodium Chloride 10 ml 02/28/25 11:59 Sodium Chloride Flush 0.9% 10 Ml Syringe IVP PRN PRN NEEDED PER PROVIDER ORDERS Sodium Chloride 10 ml 02/28/25 17:00 03/02/25 08:27 Sodium Chloride Flush 0.9% 10 Ml Syringe IVP 10 ml 0100,0900,1700 GONZALES Administration Objective Vital Signs/Intake & Output Reviewed Vital Signs: Yes Vital Signs: Vital Signs x48h Temp Pulse Resp BP Pulse Ox 03/02/25 07:57 98.8 F 80 16 152/64 H 94 Intake & Output: Intake & Output 02/27/25 02/28/25 03/01/25 03/02/25 23:59 23:59 23:59 23:59 Intake Total 825 / 825 1150 / 1150 1470 / 1470 120 / 120 Output Total 1650 / 1650 860 / 860 800 / 800 525 / 525 Balance -825 / -825 290 / 290 670 / 670 -405 / -405 Weight (kg) 44.7 kg Objective General Appearance: positive No acute distress and Alert; negative Anxious Eyes Bilateral: positive Normal inspection, PERRL and EOMI ENT: positive ENT inspection nml, Pharynx nml and No signs of dehydration Neck: positive Nml inspection, Thyroid nml and No JVD Respiratory: positive Chest non-tender, No respiratory distress and Breath sounds nml; negative Wheezes, Rales or Rhonchi Cardiovascular: positive Regular rate & rhythm, No murmur and No gallop; negative Tachycardia or Systolic murmur Abdomen: positive Non-tender, No organomegaly and No distention; negative Guarding or Splenomegaly Back: positive Nml inspection; negative CVA tenderness (R) or CVA tenderness (L) Skin: positive Color nml, No rash, Warm and Dry Extremities: positive No pedal edema and Other (Expected postoperative findings left lower extremity. Dressing is fairly saturated, but otherwise intact. No surrounding erythema or tenderness.) Neurologic/Psychiatric: positive Oriented x3, Motor nml and Mood/affect nml Lab Results 03/02/25 06:40 03/01/25 14:13 Other Labs: Lab Results x24hrs 03/02/25 03/01/25 03/01/25 Range/Units 06:40 19:37 15:41 WBC 6.7 (4.8-10.8) x10^3/uL RBC 2.67 L (4.20-5.40) 10^6/uL Hgb 8.0 L 5.4 L* (12.0-16.0) g/dL Hct 24.8 L (37.0-47.0) % MCV 92.9 (81.0-99.0) fL MCH 30.0 (27.0-31.0) pg MCHC 32.3 (32.0-36.0) g/dL RDW 18.5 H (12.0-15.0) % Plt Count 123 L (130-450) 10^3/uL MPV 11.1 H (7.9-10.8) fL Neut # (Auto) 5.2 (1.5-6.6) 10^3/uL Lymph # (Auto) 0.6 L (1.5-3.5) 10^3/uL [place] # (Auto) 0.7 (0.0-1.0) 10^3/uL Eos # (Auto) 0.2 (0.0-0.7) 10^3/uL Baso # (Auto) 0.0 (0.0-0.1) 10^3/uL Absolute Nucleated RBC 0.00 x10^3/uL Nucleated RBC % 0.0 /100WBC Sodium (135-145) mmol/L Potassium (3.5-4.5) mmol/L Chloride (101-111) mmol/L Carbon Dioxide (21-32) mmol/L Anion Gap (6-13) BUN (6-20) mg/dL Creatinine (0.6-1.3) mg/dL Estimated GFR (MDRD) (>89) Glucose (74-104) mg/dL Calcium (8.5-10.3) mg/dL Iron (50-212) ug/dL TIBC (250-450) ug/dL % Saturation (20-50) % Transferrin (203-362) mg/dL Vitamin D 25-Hydroxy (30.0-100.0) ng/mL Blood Type O POSITIVE Antibody Screen POSITIVE Antibody Identification Anti-Fya [place], IgG Specific Not Reportable [place], Polyspecific NEGATIVE [place], C3d Specific Not Reportable Crossmatch See Detail Crossmatch IS Only See Detail 03/01/25 02/28/25 Range/Units 14:13 06:15 WBC 8.7 (4.8-10.8) x10^3/uL RBC 2.02 L (4.20-5.40) 10^6/uL Hgb 6.0 L* (12.0-16.0) g/dL Hct 19.5 L* (37.0-47.0) % MCV 96.5 (81.0-99.0) fL MCH 29.7 (27.0-31.0) pg MCHC 30.8 L (32.0-36.0) g/dL RDW 20.0 H (12.0-15.0) % Plt Count 141 (130-450) 10^3/uL MPV 10.3 (7.9-10.8) fL Neut # (Auto) (1.5-6.6) 10^3/uL Lymph # (Auto) (1.5-3.5) 10^3/uL [place] # (Auto) (0.0-1.0) 10^3/uL Eos # (Auto) (0.0-0.7) 10^3/uL Baso # (Auto) (0.0-0.1) 10^3/uL Absolute Nucleated RBC x10^3/uL Nucleated RBC % /100WBC Sodium 137 (135-145) mmol/L Potassium 3.6 (3.5-4.5) mmol/L Chloride 99 L (101-111) mmol/L Carbon Dioxide 27 (21-32) mmol/L Anion Gap 11.0 (6-13) BUN 7 (6-20) mg/dL Creatinine 0.8 (0.6-1.3) mg/dL Estimated GFR (MDRD) 70 L (>89) Glucose 110 H (74-104) mg/dL Calcium 10.3 (8.5-10.3) mg/dL Iron 31 L (50-212) ug/dL TIBC 407 (250-450) ug/dL % Saturation 8 L (20-50) % Transferrin 291 (203-362) mg/dL Vitamin D 25-Hydroxy 35.5 (30.0-100.0) ng/mL Blood Type Antibody Screen Antibody Identification [place], IgG Specific [place], Polyspecific [place], C3d Specific Crossmatch Crossmatch IS Only Assessment/Plan Problem List (1) Intertrochanteric fracture of left hip: Impression: Patient underwent surgery, left hip pinning, on 02/28. Healing appropriately. Pain is managed. Did have some postoperative anemia. Received 1 unit of blood. Stable at this time. Continue to trend, repeat H&H pending for this afternoon. Continue DVT prophylaxis with aspirin twice daily. Starting on PPI as well given history of GERD and alcohol use. PT evaluated the patient, recommend SNF on discharge. Qualifiers: Encounter type: initial encounter Fracture alignment: displaced F racture type: closed Qualified Code(s): S72.142A - Displaced intertrochanteric fracture of left femur, initial encounter for closed fracture (2) Osteoporosis: Impression: Patient has osteoporosis now presenting with pathologic fracture. She actually just had a recent DEXA scan in January 2025. T-score of -3.3 at the left femoral neck, -3.4 at the left hip. -0.7 at the Lspine. Not yet started on treatment. Likely should start on bisphosphonate at discharge. Will start on calcium and vitamin D for secondary prophylaxis. Qualifiers: Encounter type: initial encounter Osteoporosis type: age-related P resence of current pathological fracture: with current pathological fracture Q ualified Code(s): M80.00XA - Age-related osteoporosis with current pathological fracture, unspecified site, initial encounter for fracture (3) Prolonged Q-T interval on ECG: Impression: Resolved on repeat EKG. May have been related to acute alcohol intoxication. Mildly prolonged on initial EKG, QTc 501. (4) Tobacco dependence: Impression: Patient apparently is a minimal smoker. She smokes approximately 1 cigarette/day. Did not request a nicotine patch. (5) Alcohol use: Impression: She has not exhibited any significant signs of alcohol withdrawal. Motivational interview with patient and her on 02/28. They are agreeable that they should cut back on the number of cocktails. Patient came in with a positive blood alcohol level up to 340. (6) Hypertension: Impression: Continue metoprolol. Qualifiers: Hypertension type: other secondary hypertension Qualified Code(s): I 15.8 - Other secondary hypertension
[2025-03-02] MEDS: SENNA 8.6 MG TABLET PO SCH (14:47)
[2025-03-02 15:19] LABS: HCT - HEMATOCRIT 24.4 % (37.0-47.0); HGB - HEMOGLOBIN 7.8 g/dL (12.0-16.0)
[2025-03-03 06:04] LABS: HCT - HEMATOCRIT 23.2 % (37.0-47.0); HGB - HEMOGLOBIN 7.3 g/dL (12.0-16.0); MEAN PLATELET VOLUME 10.9 fL (7.9-10.8); PLT - PLATELET COUNT 127.0 10^3/uL (130-450); RED CELL DISTRIBUTION WIDTH 18.9 % (12.0-15.0)
[2025-03-03 06:17] LABS: BUN - BLOOD UREA NITROGEN 6.0 mg/dL (6-20); CARBON DIOXIDE - CO2 25.0 mmol/L (21-32); CREATININE 0.6 mg/dL (0.6-1.3); GFR - MDRD 98.0 (>89)
[2025-03-03] MEDS: METOPROLOL SUCCINATE 25 MG TABLET PO SCH (09:05)
[2025-03-03] MEDS: ACETAMINOPHEN 325 MG TABLET PO PRN (10:54)
--- NOTE | 2025-03-03 12:26 | PROVIDER PROGRESS NOTE ---
Subjective Subjective Subjective: Patient is doing well this morning. She no longer feels dizzy or lightheaded when she is getting up. She does state that she has a long history of iron deficiency anemia. She has not been taking iron supplements as it does not sit well with her, but she does receive occasional IV iron infusions. Other than that, she is eager to work with PT. She will be choiced for SNF and is in agreement with the plan. Diet: Regular DVT: Aspirin 650 mg BID - per orthopedic reccs Dispo: SNF on discharge, medically cleared for discharge Code: Full Code Current Medications Current Medications Current Medications: Current Medications Generic Name Dose Route Start Last Admin Trade Name Freq PRN Reason Stop Dose Admin Acetaminophen 650 mg 02/27/25 06:09 03/03/25 10:54 Acetaminophen 325 Mg Tablet PO 650 mg Q4HR PRN Administration Pain 1 to 4, or Fever Hydrocodone Bitart/Acetaminophen 1 tab 02/27/25 06:09 03/03/25 10:54 Hydrocod/Acetam 5/325 Mg Tablet PO 1 tab Q4HR PRN Administration Pain 5 to 7 Hydrocodone Bitart/Acetaminophen 1 tab 02/27/25 06:09 03/03/25 06:24 Hydrocod/Acetam 10 Mg/325 Mg Tablet PO 1 tab Q4HR PRN Administration Pain 8 to 10 Aspirin 650 mg 03/01/25 09:00 03/03/25 09:09 Aspirin Ec 325 Mg Tablet PO Not Given BID GONZALES Calcium Carbonate/Glycine 500 mg 02/28/25 08:00 03/03/25 09:05 Calcium Carbonate Chew 500 Mg Tablet PO Not Given QDBREAKFAST GONZALES Cholecalciferol 50 mcg 02/28/25 09:00 03/03/25 09:05 Cholecalciferol 25 Mcg Tablet PO 50 mcg DAILY GONZALES Administration Metoprolol Succinate 25 mg 03/03/25 09:00 03/03/25 09:05 Metoprolol Succinate 25 Mg Tablet PO 25 mg DAILY GONZALES Administration Pantoprazole Sodium 40 mg 03/01/25 09:00 03/03/25 06:07 Pantoprazole 40 Mg Tablet PO 40 mg QDAC GONZALES Administration Polyethylene Glycol 17 gm 03/02/25 13:00 03/03/25 09:06 Polyethylene Glycol 3350 17 Gm Packet PO 17 gm DAILY GONZALES Administration Senna 8.6 - 17.2 mg 03/02/25 13:00 03/03/25 09:05 Senna 8.6 Mg Tablet PO 8.6 mg DAILY GONZALES Administration Sodium Chloride 10 ml 02/27/25 06:09 Sodium Chloride Flush 0.9% 10 Ml Syringe IVP PRN PRN NEEDED PER PROVIDER ORDERS Sodium Chloride 10 ml 02/27/25 09:00 03/03/25 09:06 Sodium Chloride Flush 0.9% 10 Ml Syringe IVP 10 ml 0100,0900,1700 GONZALES Administration Sodium Chloride 10 ml 02/28/25 11:59 Sodium Chloride Flush 0.9% 10 Ml Syringe IVP PRN PRN NEEDED PER PROVIDER ORDERS Sodium Chloride 10 ml 02/28/25 17:00 03/03/25 09:06 Sodium Chloride Flush 0.9% 10 Ml Syringe IVP 10 ml 0100,0900,1700 GONZALES Administration Objective Vital Signs/Intake & Output Reviewed Vital Signs: Yes Vital Signs: Vital Signs x48h Temp Pulse Resp BP Pulse Ox 03/03/25 08:16 99.0 F 76 18 140/65 H 96 Intake & Output: Intake & Output 02/28/25 03/01/25 03/02/25 03/03/25 23:59 23:59 23:59 23:59 Intake Total 1150 / 1150 1470 / 1470 920 / 920 320 / 320 Output Total 860 / 860 800 / 800 1175 / 1175 50 / 50 Balance 290 / 290 670 / 670 -255 / -255 270 / 270 Objective General Appearance: positive No acute distress and Alert; negative Anxious Eyes Bilateral: positive Normal inspection, PERRL and EOMI ENT: positive ENT inspection nml, Pharynx nml and No signs of dehydration Neck: positive Nml inspection, Thyroid nml and No JVD Respiratory: positive Chest non-tender, No respiratory distress and Breath sounds nml; negative Wheezes, Rales or Rhonchi Cardiovascular: positive Regular rate & rhythm, No murmur and No gallop; negative Tachycardia or Systolic murmur Abdomen: positive Non-tender, No organomegaly and No distention; negative Guarding or Splenomegaly Back: positive Nml inspection; negative CVA tenderness (R) or CVA tenderness (L) Skin: positive Color nml, No rash, Warm and Dry Extremities: positive No pedal edema and Other (Expected postoperative findings left lower extremity. Dressing is fairly saturated, but otherwise intact. No surrounding erythema or tenderness.) Neurologic/Psychiatric: positive Oriented x3, Motor nml and Mood/affect nml Lab Results 03/03/25 05:21 03/03/25 05:21 Other Labs: Lab Results x24hrs 03/03/25 03/02/25 Range/Units 05:21 15:14 WBC 5.3 (4.8-10.8) x10^3/uL RBC 2.46 L (4.20-5.40) 10^6/uL Hgb 7.3 L 7.8 L (12.0-16.0) g/dL Hct 23.2 L 24.4 L (37.0-47.0) % MCV 94.3 (81.0-99.0) fL MCH 29.7 (27.0-31.0) pg MCHC 31.5 L (32.0-36.0) g/dL RDW 18.9 H (12.0-15.0) % Plt Count 127 L (130-450) 10^3/uL MPV 10.9 H (7.9-10.8) fL Sodium 137 (135-145) mmol/L Potassium 3.4 L (3.5-4.5) mmol/L Chloride 103 (101-111) mmol/L Carbon Dioxide 25 (21-32) mmol/L Anion Gap 9.0 (6-13) BUN 6 (6-20) mg/dL Creatinine 0.6 (0.6-1.3) mg/dL Estimated GFR (MDRD) 98 (>89) Glucose 89 (74-104) mg/dL Calcium 9.2 (8.5-10.3) mg/dL Magnesium 1.3 L (1.7-2.3) mg/dL Assessment/Plan Problem List (1) Intertrochanteric fracture of left hip: Impression: Patient underwent surgery, left hip pinning, on 02/28. Healing appropriately. Pain is managed. Did have some postoperative anemia. Received 1 unit of blood. Stable at this time. Continue to trend daily. Continue DVT prophylaxis with aspirin twice daily. Starting on PPI as well given history of GERD and alcohol use. PT evaluated the patient, recommend SNF on discharge. Qualifiers: Encounter type: initial encounter Fracture alignment: displaced F racture type: closed Qualified Code(s): S72.142A - Displaced intertrochanteric fracture of left femur, initial encounter for closed fracture (2) Osteoporosis: Impression: Patient has osteoporosis now presenting with pathologic fracture. She actually just had a recent DEXA scan in January 2025. T-score of -3.3 at the left femoral neck, -3.4 at the left hip. -0.7 at the Lspine. Not yet started on treatment. Likely should start on bisphosphonate at discharge. Will start on calcium and vitamin D for secondary prophylaxis. Qualifiers: Encounter type: initial encounter Osteoporosis type: age-related P resence of current pathological fracture: with current pathological fracture Q ualified Code(s): M80.00XA - Age-related osteoporosis with current pathological fracture, unspecified site, initial encounter for fracture (3) Prolonged Q-T interval on ECG: Impression: Resolved on repeat EKG. May have been related to acute alcohol intoxication. Mildly prolonged on initial EKG, QTc 501. (4) Tobacco dependence: Impression: Patient apparently is a minimal smoker. She smokes approximately 1 cigarette/day. Did not request a nicotine patch. (5) Alcohol use: Impression: She has not exhibited any significant signs of alcohol withdrawal. Motivational interview with patient and her on 02/28. They are agreeable that they should cut back on the number of cocktails. Patient came in with a positive blood alcohol level up to 340. (6) Hypertension: Impression: Continue metoprolol. Qualifiers: Hypertension type: other secondary hypertension Qualified Code(s): I 15.8 - Other secondary hypertension
[2025-03-03] MEDS: LACTATED RINGERS 1,000 ML IV ONE (14:40)
[2025-03-04 06:29] LABS: HCT - HEMATOCRIT 23.9 % (37.0-47.0); HGB - HEMOGLOBIN 7.5 g/dL (12.0-16.0); MEAN PLATELET VOLUME 10.6 fL (7.9-10.8); PLT - PLATELET COUNT 143.0 10^3/uL (130-450); RED CELL DISTRIBUTION WIDTH 19.4 % (12.0-15.0)
[2025-03-04 06:45] LABS: BUN - BLOOD UREA NITROGEN 6.0 mg/dL (6-20); CARBON DIOXIDE - CO2 25.0 mmol/L (21-32); CREATININE 0.5 mg/dL (0.6-1.3); GFR - MDRD 121.0 (>89)
[2025-03-04] MEDS: POTASSIUM CHLORIDE 20 MEQ TABLET PO ONE (08:56)
[2025-03-04] MEDS: LACTULOSE 10 GM /15 ML UDC PO SCH (14:04)
[2025-03-05] MEDS: ENOXAPARIN 40 MG/0.4 ML SYRINGE SUBQ SCH (08:30)
--- NOTE | 2025-03-05 11:17 | PROVIDER PROGRESS NOTE ---
Current Medications Current Medications Current Medications: Current Medications Generic Name Dose Route Start Last Admin Trade Name Freq PRN Reason Stop Dose Admin Acetaminophen 650 mg 02/27/25 06:09 03/03/25 10:54 Acetaminophen 325 Mg Tablet PO 650 mg Q4HR PRN Administration Pain 1 to 4, or Fever Hydrocodone Bitart/Acetaminophen 1 tab 02/27/25 06:09 03/03/25 19:19 Hydrocod/Acetam 5/325 Mg Tablet PO 1 tab Q4HR PRN Administration Pain 5 to 7 Hydrocodone Bitart/Acetaminophen 1 tab 02/27/25 06:09 03/05/25 06:19 Hydrocod/Acetam 10 Mg/325 Mg Tablet PO 1 tab Q4HR PRN Administration Pain 8 to 10 Calcium Carbonate/Glycine 500 mg 02/28/25 08:00 03/05/25 08:31 Calcium Carbonate Chew 500 Mg Tablet PO 500 mg QDBREAKFAST GONZALES Administration Cholecalciferol 50 mcg 02/28/25 09:00 03/05/25 08:31 Cholecalciferol 25 Mcg Tablet PO 50 mcg DAILY GONZALES Administration Enoxaparin Sodium 40 mg 03/05/25 09:00 03/05/25 08:30 Enoxaparin 40 Mg/0.4 Ml Syringe SUBQ 40 mg DAILY GONZALES Administration Lactulose 10 gm 03/04/25 13:00 03/05/25 08:30 Lactulose 10 Gm /15 Ml Udc PO 10 gm QID GONZALES Administration Metoprolol Succinate 25 mg 03/03/25 09:00 03/05/25 08:31 Metoprolol Succinate 25 Mg Tablet PO 25 mg DAILY GONZALES Administration Pantoprazole Sodium 40 mg 03/01/25 09:00 03/05/25 06:18 Pantoprazole 40 Mg Tablet PO 40 mg QDAC GONZALES Administration Polyethylene Glycol 17 gm 03/02/25 13:00 03/05/25 08:30 Polyethylene Glycol 3350 17 Gm Packet PO 17 gm DAILY GONZALES Administration Senna 8.6 - 17.2 mg 03/02/25 13:00 03/05/25 08:31 Senna 8.6 Mg Tablet PO 17.2 mg DAILY GONZALES Administration Sodium Chloride 10 ml 02/27/25 06:09 Sodium Chloride Flush 0.9% 10 Ml Syringe IVP PRN PRN NEEDED PER PROVIDER ORDERS Sodium Chloride 10 ml 02/27/25 09:00 03/05/25 08:33 Sodium Chloride Flush 0.9% 10 Ml Syringe IVP 10 ml 0100,0900,1700 GONZALES Administration Sodium Chloride 10 ml 02/28/25 11:59 Sodium Chloride Flush 0.9% 10 Ml Syringe IVP PRN PRN NEEDED PER PROVIDER ORDERS Sodium Chloride 10 ml 02/28/25 17:00 03/05/25 08:33 Sodium Chloride Flush 0.9% 10 Ml Syringe IVP Not Given 0100,0900,1700 GONZALES Objective Vital Signs/Intake & Output Vital Signs: Vital Signs x48h Temp Pulse Resp BP Pulse Ox 03/05/25 08:24 98.2 F 74 16 142/57 H 94 Intake & Output: Intake & Output 03/02/25 03/03/25 03/04/25 03/05/25 23:59 23:59 23:59 23:59 Intake Total 920 / 920 2260 / 2260 940 / 940 200 / 200 Output Total 1175 / 1175 550 / 550 1350 / 1350 600 / 600 Balance -255 / -255 1710 / 1710 -410 / -410 -400 / -400 Lab Results 03/04/25 05:58 03/04/25 05:58 Other Labs: Lab Results x24hrs 03/01/25 Range/Units 15:41 Blood Type O POSITIVE Antibody Screen POSITIVE Antibody Identification Anti-Fya [place], Polyspecific NEGATIVE Crossmatch See Detail Crossmatch IS Only See Detail Assessment/Plan Problem List (1) Intertrochanteric fracture of left hip: Qualifiers: Encounter type: initial encounter Fracture alignment: displaced F racture type: closed Qualified Code(s): S72.142A - Displaced intertrochanteric fracture of left femur, initial encounter for closed fracture (2) Osteoporosis: Qualifiers: Osteoporosis type: age-related Presence of current pathological fracture: with current pathological fracture Encounter type: initial encounter Qualified Code(s): M80.00XA - Age-related osteoporosis with current pathological fracture, unspecified site, initial encounter for fracture (3) Prolonged Q-T interval on ECG: (4) Tobacco dependence: (5) Alcohol use: (6) Hypertension: Qualifiers: Hypertension type: other secondary hypertension Qualified Code(s): I 15.8 - Other secondary hypertension
--- NOTE | 2025-03-05 11:32 | POST OP PROGRESS NOTE ---
Subjective General Admit Date: 02/27/25 Procedure Date: 04/02/22 Post Op Days: 1068 Other Other Information/Narrative: Patient was seen today and she states that she is doing pretty good she does have discomfort in the hip but that is to be expected. She is complaining of some mild spasming. Ortho Surgical Progress Note Problem List Problem List: I think the patient is doing quite well she can continue to be weightbearing as tolerated. She can follow-up with Dr. Gonzales in about 10 to 14 days for suture removal. And call with any questions or problems. Exam Exam Vital Signs: Vital Signs x48h Temp Pulse Resp BP Pulse Ox 03/05/25 08:24 36.8 C 74 16 142/57 H 94 There is no erythema no drainage no signs and symptoms of any infection. Neurovascularly intact.
--- NOTE | 2025-03-05 11:51 | Discharge Summary ---
"Discharge Summary Admit Date: 02/27/25 Discharge Date: 03/05/25 Discharging Provider: Dr. Margoth Michel Primary Care Provider: Gricelda Jacques Code Status: Attempt Resuscitation Discharge Facility Name: [facility] DIAGNOSES Discharge Diagnoses with Status of Each Condition: Intertrochanteric fracture left hippatient underwent surgery, left hip pinning, on 02/28. Healing appropriately, some expected edema around the area. Course was complicated by postoperative anemia, and she did receive 1 unit of packed red blood cells. Her hemoglobin has been stable around 7.2-7.5 since. She does have a history of iron deficiency anemia, and receives iron transfusions in the outpatient. Plan is for further rehab at SNF. OsteoporosisDEXA scan with T-score of -3.3 at left femoral neck, -3.4 left hip, -0.7 at L-spine. Should follow-up with primary care provider and start bisphosphonate. Continue vitamin and D and calcium at this time. Prolonged QTcresolved. Tobacco dependencesmokes 1 cigarette a day. Did not request a nicotine patch. Alcohol usehas not gone through withdrawal while here. Hypertensioncontinue metoprolol. HPI History of Present Illness: Per Dr. Carbone: Patient is 74 y/o F with hx of HTN and GERD , alcohol use and prior hx of Ascites and monthly fluid draining and last paracentesis was in 2009 as per patient, presented to hospital for evaluation of mechanical fall, patient tripped on carpet and fell on left side, since then c/o LLE pain at hip, unable to bear weight and not able to ambulate, during ER work up patient is found to have left hip fracture and hospitalist team is asked to admit patient, as per Dr Shah who also did labs and EKG, which is consistent with mild dehydration and acidosis and Prolojgned QT 501 msec on EKG Ortho service is notified CONSULTS | PROCEDURES Consultations: Orthopedic surgery Procedures: Cervical spine CTdegenerative disc disease and arthroplasty without fracture or traumatic malalignment02/27. Head CTatrophy and chronic ischemic changes, old small right occipital cortical infarct02/27. Abdomen/pelvis CT/comminuted left femoral intertrochanteric fracture, gastritis. Chest CT/no acute findings. Lumbar spine CT9/20old L1 compression fracture, degenerative disc disease. Thoracic spine CTT7 compression fracture, uncertain age. Osteopenia. HOSPITAL COURSE Hospital Course: Patient is a 74-year-old female with a history of hypertension, previous gastric ulcer perforation requiring exploratory laparotomy, alcohol use who presented after a mechanical fall. Following the fall, she had pain in her left hip. Imaging revealed a intertrochanteric fracture of the left hip. She had left hip pinning completed with orthopedic surgery on 02/28. Her postoperative course was complicated by anemia, for which she received 1 unit of blood. She refused aspirin for DVT prophylaxis due to this previous history of ulceration, but was okay with Lovenox injections, which will be continued for 3 more weeks after discharge. She was started on a calcium, as well as a vitamin D supplement. She was counseled on alcohol cessation, and did not exhibit any signs of alcohol withdrawal while here. She worked with physical therapy during her stay here, and progressed adequately. Plan is SNF placement for further rehabilitation. She will need close follow-up in the outpatient with her primary care provider, as well as orthopedic surgeon. ALLERGIES Allergies Allergy/AdvReac Type Severity Reaction Status Date / Time NSAIDS (Non-Steroidal Allergy Severe Unknown Verified 02/28/25 13:27 Anti-Inflamma Penicillins Allergy Severe Itching Verified 02/28/25 13:27 MEDICATIONS Ambulatory Orders Medication Instructions Recorded Confirmed omeprazole 20 mg capsule,delayed 20 mg PO DAILY 02/28/25 release blood pressure test kit-wrist 12/27/24 01/07/25 (Procare Wrist Blood Pressure Monitor kit) cholecalciferol (vitamin D3) 25 25 mcg PO DAILY 02/28/25 mcg (1,000 unit) tablet (Vitamin D3) metoprolol succinate 25 mg 25 mg PO DAILY high bp 02/0902/28/25 tablet,extended release 24 hr calcium carbonate 500 mg (2.5 x 200 mg calcium (500 03/05/25 mg)) PO QDBREAKFAST #30 tabs enoxaparin 40 mg/0.4 mL 40 mg (0.4 mL) subcut DAILY 3 03/05/25 subcutaneous syringe weeks #8.4 mL hydrocodone 5 mg-acetaminophen 325 1 tab PO Q4HR PRN P ain 5 to 7 #14 03/05/25 mg tablet tabs PHYSICAL EXAM AT DISCHARGE Vital Signs: Vital Signs x48h Temp Pulse Resp BP Pulse Ox 03/05/25 14:45 98.1 F 70 18 124/54 L 93 03/05/25 08:24 98.2 F 74 16 142/57 H 94 General Appearance: positive No acute distress and Alert; negative Anxious Eyes Bilateral: positive Normal inspection, PERRL and EOMI ENT: positive ENT inspection nml, Pharynx nml and No signs of dehydration Neck: positive Nml inspection, Thyroid nml and No JVD Respiratory: positive Chest non-tender, No respiratory distress and Breath sounds nml; negative Wheezes, Rales or Rhonchi Cardiovascular: positive Regular rate & rhythm, No murmur and No gallop; negative Tachycardia or Systolic murmur Abdomen: positive Non-tender, No organomegaly and No distention; negative Guarding or Splenomegaly Back: positive Nml inspection; negative CVA tenderness (R) or CVA tenderness (L) Skin: positive Color nml, No rash, Warm and Dry Extremities: positive No pedal edema and Other (Expected postoperative findings left lower extremity. Dressing is fairly saturated, but otherwise intact. No surrounding erythema or tenderness.) Neurologic/Psychiatric: positive Oriented x3, Motor nml and Mood/affect nml LABS 03/04/25 05:58 03/04/25 05:58 DIAGNOSTIC IMAGING Diagnostic Imaging Results: Final report reviewed QUALITY (Female Hip Fx Only) Was patient sent home on osteoporosis medication?: Yes FOLLOW UP Follow Up: Follow up with PCP. Follow up with orthopedic surgery. TIME SPENT Time Spent in Discharge (Minutes): 35 Discharge Plan Discharge Patient Disposition: [address] [facility] DC/Xfer Condition: Stable Prescriptions: New calcium carbonate 200 mg calcium (500 mg) Tablet,Chewable 500 mg PO QDBREAKFAST Qty: 30 0RF enoxaparin 40 mg/0.4 mL Syringe 40 mg subcut DAILY 21 Days Qty: 8.4 0RF hydrocodone-acetaminophen 5-325 mg Tablet 1 tab PO Q4HR PRN (Reason: Pain 5 to 7) Qty: 14 0RF Continued (DME) blood pressure test kit-wrist [Procare Wrist BP Monitor] Kit See Rx Instructions .Route Rx Instructions: As directed omeprazole 20 MG capsule,delayed release(DR/EC) 20 mg PO DAILY cholecalciferol (vitamin D3) [Vitamin D3] 25 mcg (1,000 unit) tablet 25 mcg PO DAILY metoprolol succinate 25 mg tablet extended release 24 hr 25 mg PO DAILY Activity Restrictions: Wt Bearing as Tolerated Diet: Regular Health Concerns: You came in after you had fallen. You broke your hip. You had surgery done on 02/28, a left hip nailing. After the surgery, you have received your rehab while you have been here. You will need continuous rehab in order to get back to your normal functional self. Even while you have been here, and have worked with physical therapy, you are showing improved tolerance to activity and improving weight acceptance. As we talked about, with this new hip fracture, you are going to be less active than usual. As you will not be able to move around as much, there is an increased risk of blood clots in your legs. With this, for the next 3 weeks, you will require a medication for prevention of blood clots. We talked about why you do not want to do the aspirin, and you have opted for the subcutaneous injections, which you will get once a day for the next 3 weeks. Please continue taking your omeprazole which will help protect the lining of your stomach. We have also started you on a calcium and vitamin D supplement for healthy bones. While you were here, your blood levels did drop after surgery, and you required a blood transfusion. They have been stable for many days now. However, you do have a known history of iron deficiency anemia, and should resume your iron transfusions as indicated by your primary care provider. Once you are discharged from rehab, please follow-up closely with your primary care provider. We are glad you are feeling better, thanks for allowing us to take care of you. Print Language: Kyrgyz Patient Instructions: Surg Dc Stand Alone Forms: SNF Discharge, PCP List Follow-up Care: Colin Syed DO [Provider Admit Priv/Credential, Orthopedics] - 4 Weeks Gricelda Jacques ARNP [Primary Care Provider, Family Practice] Report called to and time (if no answer, doc. time of each call attempted): a ttempted call 13:04, 13:43 Vitals documented within 30 minutes of discharge?: Yes (Temp 36.7, pulse 70, resp 18, BP 124/54, SpO2 93% on RA)"
[2025-03-05 15:07] VITALS: BP 124/54; TEMP 98.1; O2SAT 93
== END 2025-03-05 14:52 | DRG 481 ==
LOC: ED 00:02 → MS3 04:15
PROVIDERS: ADMIT Family Medicine; ATTEND Family Medicine
PROC: HIPNAIL (2025-02-28 09:00)